=== PATIENT | female | born 1935 | race African-American/Black ===

== ENCOUNTER → 2019-02-06 | Day surgery (SDC) | payer OTHER ==
[2019-02-02 12:11] LABS: BASOPHILS % 0.3 % (0.0-1.0); EOSINOPHILS # (AUTO) 0.1 (0.0-0.4); EOSINOPHILS % 0.7 % (0.0-6.0); HEMATOCRIT 36.5 % (34.2-44.1); HEMOGLOBIN 11.9 g/dL (12.0-16.0); LYMPHOCYTES # (AUTO) 2.7 (1.0-3.2); MEAN CORPUSCULAR HEMOGLOBIN 28.1 pg (28-32); MEAN CORPUSCULAR HGB CONC 32.6 g/dL (31-35); MEAN CORPUSCULAR VOLUME 86.3 fL (81-99); MONOCYTES # (AUTO) 0.8 (0.2-0.8); MONOCYTES % 7.7 % (4.4-11.3); NEUTROPHILS # (AUTO) 7.1 (2.1-6.9); PLATELET COUNT 234 x10e3/uL (140-360); RED BLOOD COUNT 4.23 x10e6/uL (3.6-5.1); RED CELL DISTRIBUTION WIDTH 13.4 % (11.7-14.4)
[2019-02-02 12:30] LABS: ALBUMIN 3.7 g/dL (3.5-5.0); ANION GAP 12.2 mmol/L (8-16); CALCIUM 9.9 mg/dL (8.4-10.2); CREATININE, SERUM 1.23 mg/dL (0.57-1.11); POTASSIUM 4.2 mmol/L (3.5-5.1)
--- NOTE | 2019-02-02 15:32 | NUR ---
Dr. Marlow notified of Abnormal labs: creatinine 1.23 and eGFR 50. No new orders at this time.
[~2019-02-06] VITALS: Ht 167.6 cm; Wt 72.6 kg
[2019-02-06] VITALS (14 sets, daily range): BP systolic 122–170; BP diastolic 64–88
[~2019-02-06] MED LIST: ALPRAZOLAM 0.5 MG TAB ONE; ASPIRIN 325 MG TAB ONE; BENAZEPRIL HCL10 MG PO; BENAZEPRIL-HCT1 EAC3 PO; CETIRIZINE HCL5 MG PO; CITALOPRAM HBR20 MG PO; CLOPIDOGREL75 MG PO; CYMBALTA30 MG PO; DIPHENHYDRAMINE HCL 25 MG CAP ONE; ETODOLAC400 MG PO; FENTANYL CITRATE/PF 100MCG/2 ML INJ ONE; HEPARIN SOD/SOD CHLORIDE 2,000 ML ONE; IOPAMIDOL 300MG/ML 100 ML INFUS..BTL IV ONE; LIDOCAINE HCL 2% LOCAL 20 ML VIAL ONE; METOPROLOL SUCC50 MG PO; MIDAZOLAM HCL 2 MG/2 ML VIAL ONE; MORPHINE SULFATE INJ 4 MG/ML INJ 1ML ONE; NORCO 5-325 TA1 EACH PO; NORCO 7.5-3251 EACH PO; OMEPRAZOLE40 MG PO; PAXIL20 MG PO; PRASUGREL 10 MG TAB ONE; PROTAMINE SULFATE 10 MG/ML 5 ML VIAL ONE; SODIUM CHLORIDE 0.9% 1000ML 1,000 ML ONE; SODIUM CHLORIDE 0.9% 50ML 50 ML ONE; TRAZODONE HCL50 MG PO; ULTRACET TABLE1 EACH PO; VERAPAMIL HCL 2.5 MG/ML 2 ML VIAL ONE; Z METOPROLOL HCT PO; Z.0.AMBIEN CR12.5 MG PO; Z.0.LIPITOR20 MG PO; Z.0.NEXIUM20 MG PO
--- OUTSIDE RECORDS SUMMARY | 2019-02-06 07:36 | XMS REPORT ---
Author Author [facility] Address Unknown Phone Unavailable Care Team Providers Care Credit Review Manager Name Role Phone Unavailable Unavailable Problems This patient has no known problems. Allergies, Adverse Reactions, Alerts This patient has no known allergies or adverse reactions. Medications This patient has no known medications. Encounters Start Date/Time End Date/Time Encounter Type Admission Type Attending Clinicians Care Facility Care Department Encounter ID 2018-12-26 12:39:00 2018-12-26 12:39:00 Emergency E [facility] [id number]
--- OUTSIDE RECORDS SUMMARY | 2019-02-06 07:37 | XMS REPORT ---
Author Organization Unknown Address [address] [place] [address] Phone [phone] Care Team Providers Care Family Services Coordinator Name Role Phone ELIZABETH MANUEL MD 111 [phone] Allergies Code Code System Name Reaction Severity Status Onset Penicillins Active 09/15/2015 Medications Name Status Start Date Stop Date acetaminophen 300 mg-codeine 30 mg tablet Active Not available Alphagan P 0.1 % eye drops Completed 04/27/2017 atorvastatin 20 mg tablet Active Not available azithromycin 250 mg tablet Completed 05/27/2016 benazepril 20 mg tablet Completed 03/16/2016 benazepril 20 mg-hydrochlorothiazide 25 mg tablet Active Not available bupropion HCl XL 150 mg 24 hr tablet, extended release Completed 08/01/2017 08/01/2017 celecoxib 200 mg capsule Active 08/01/2017 Not available ciprofloxacin 500 mg tablet Completed 03/16/2016 citalopram 20 mg tablet 1 tab QD Completed 05/27/2016 dorzolamide 22.3 mg-timolol 6.8 mg/mL eye drops Active Not available duloxetine 30 mg capsule,delayed release Active Not available gabapentin 300 mg capsule Active Not available hydrocodone 7.5 mg-acetaminophen 325 mg tablet Completed 03/16/2016 latanoprost 0.005 % eye drops Active Not available meloxicam 15 mg tablet Completed 05/27/2016 metoprolol succinate ER 50 mg tablet,extended release 24 hr Active Not available metoprolol tartrate 100 mg-hydrochlorothiazide 25 mg tablet Completed 03/16/2016 omeprazole 20 mg capsule,delayed release 1 tab QD Active Not available oxybutynin chloride ER 10 mg tablet,extended release 24 hr 1 tab Completed 05/27/2016 paroxetine 10 mg tablet Take 1 tablet every day by oral route for 7 days. 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/06/2015 History Hypertensive Heart Disease Unknown 03/06/2015 History Diaphragmatic Hernia Active 03/06/2015 History Diverticula of Intestine Active 03/06/2015 History Neck Pain Unknown 03/06/2015 History 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 History Low Back Pain Active 03/06/2015 History Lumbosacral Radiculopathy Active 03/06/2015 History Finding of Esophagus Unknown 03/06/2015 History Primary Open Angle Glaucoma Active 06/19/2015 History Spinal Stenosis in Cervical Region Active 09/15/2015 History Exercise-induced Angina Active 07/05/2016 Insomnia Active 07/08/2016 Gastroesophageal Reflux Disease Active 07/08/2016 Hypertensive Renal Disease Active 04/27/2017 Chronic Kidney Disease Stage 3 Active 04/27/2017 Mild Recurrent Major Depression Active 08/01/2017 Procedures Date Name Performed by 02/18/2016 Bone Density Study Information not available 05/27/2016 XR, Shoulder [facility] [address] [place], [place] [id number] (Work Place) 05/27/2016 MAMMO, Screening, Digital, Bilateral [facility] [address] [place], [place] [id number] (Work Place) Notes: 09/15/2015: S/P Hysterectomy; Surgery Date: 1959 S/P Cholecystectomy; Surgery Date: 2001 S/P Lumbar Laminectomy L3-4 L 4-5 L5-S1; Surgery Date: 2008 Lab Results Date Name Specimen Result Interpretation Description Value Range Status Address 08/01/2017 HbA1C (Hemoglobin a1C), Blood Normal Hemoglobin a1C 5.5 % of total HGB <5.7 % of total HGB Final [facility]: [address] [place] [address] [place] EAG (mg/dL) 111 (calc) Final [facility]: [address] [place] [address] [place] EAG (mmol/L) 6.2 (calc) Final [facility]: [address] Larry Teri [place] 08/01/2017 Urinalysis, Dipstick Color Color yellow [facility]: [address], [place] Color Appearance cloudy [facility] [place]: [address], [place] Color Glucose negative [facility] [place]: [address], [place] Color Bilirubin negative [facility] [place]: [address], [place] Color Ketones negative [facility] [place]: [address], [place] Color Specific Mary Alice 1.015 [facility]: [address], [place] Color Blood negative [facility] [place]: [address], [place] Color PH 6.0 [facility] [place]: [address], [place] Color Protein negative [facility]: [address] [facility] [address] [place] Color Urobilinogen 0.2 [facility]: [address], [place] Color Nitrites negative [facility] [place]: [address], [place] Color Leukocytes small [facility]: [address] [facility] [address], [place] 04/27/2017 CBC W/ Auto Diff Normal White Blood Cell Count 6.5 thousand/uL 3.8-10.8 thousand/uL Final [facility]: [address] [place] [address] Normal Red Blood Cell Count 4.24 million/uL 3.80-5.10 million/uL Final [facility] [address] [facility] Hemoglobin 11.5 g/dL 11.7-15.5 g/dL Final [facility]: [address] [facility] Normal Hematocrit 35.5 % 35.0-45.0 % Final [facility]: [address] [facility] Normal Mcv 83.7 fL 80.0-100.[address] [facility] [address] [facility] Normal Mch 27.1 pg 27.0-33.[address] [facility]: [address], [place] Normal Mchc 32.4 g/dL 32.0-36.0 g/dL Final [facility] [address] [facility] Normal Rdw 14.0 % 11.0-15.0 % Final [facility]: [address], [place] Normal Platelet Count 175 thousand/uL 140-400 thousand/uL Final [facility]: [address] Normal Mpv 11.9 fL 7.5-12.[address] [facility]: [address] [place] Normal Absolute Neutrophils 3842 cells/uL 8760-2853 cells/uL Final [facility]: [address] [place] Normal Absolute Lymphocytes 2041 cells/uL 850-3900 cells/uL Final [facility]: [address] [place] Normal Absolute Monocytes 468 cells/uL 200-950 cells/uL Final [facility]: [address] [place] Normal Absolute Eosinophils 111 cells/uL 15-500 cells/uL Final [facility]: [address] [place] Normal Absolute Basophils 39 cells/uL 0-200 cells/uL Final [facility]: [address] [place] Normal Neutrophils 59.1 % Final [facility]: [address] [place] Normal Lymphocytes 31.4 % Final [facility]: [address] [place] Normal Monocytes 7.2 % Final [facility]: [address] [place] Normal Eosinophils 1.7 % Final [facility]: [address] [place] Normal Basophils 0.6 % Final [facility]: [address] [place] 04/27/2017 CMP, Serum or Plasma High Glucose 130 mg/dL 65-99 mg/dL Final [facility]: [address] [place] Normal Urea Nitrogen (BUN) 16 mg/dL 7-25 mg/dL Final [facility]: [address] [place] High Creatinine 1.10 mg/dL 0.60-0.88 mg/dL Final [facility]: [address] [place] Low eGFR Non-afr. Hong Konger 46 mL/min/1.73m2 > or=60 mL/min/1.73m2 Final [facility]: [address] [place] Low eGFR 53 mL/min/1.73m2 > or=60 mL/min/1.73m2 [address] [facility] [address] [facility] Normal BUN/creatinine Ratio 15 (calc) 6-22 (calc) Final [facility]: [address] Normal Sodium 143 mmol/L 135-146 mmol/L Final [facility]: [address] Normal Potassium 4.1 mmol/L 3.5-5.3 mmol/L Final [facility]: [address] Normal Chloride 108 mmol/L 98-110 mmol/L Final [facility]: [address] Normal Carbon Dioxide 26 mmol/L 20-31 mmol/L Final [facility]: [address] Normal Calcium 8.8 mg/dL 8.6-10.4 mg/dL Final [facility]: [address] Normal Protein, Total 6.4 g/dL 6.1-8.1 g/dL Final [facility]: [address] Normal Albumin 3.8 g/dL 3.6-5.1 g/dL Final [facility]: [address] Normal Globulin 2.6 g/dL (calc) 1.9-3.7 g/dL (calc) Final [facility]: [address] Normal Albumin/globulin Ratio 1.5 (calc) 1.0-2.5 (calc) Final [facility]: [address] Normal Bilirubin, Total 0.4 mg/dL 0.2-1.2 mg/dL Final [facility]: [address] Normal Alkaline Phosphatase 50 U/L 33-130 U/L Final [facility]: [address] Normal Ast 14 U/L 10-35 U/L Final [facility]: [address] Normal Alt 10 U/L 6-29 U/L Final [facility]: [address] 04/27/2017 Vitamin D, 25-Hydroxy, Total, Serum Low Vitamin D,25-Oh,total,ia 25 NG/mL 30-100 NG/mL Final [facility]: [address] 04/27/2017 Lipid Panel, Serum Normal Cholesterol, Total 132 mg/dL <200 mg/dL Final [facility]: [address] Low HDL Cholesterol 40 mg/dL >50 mg/dL Final [facility]: [address] High Triglycerides 218 mg/dL <150 mg/dL Final [facility]: [address] Normal LDL-cholesterol 63 mg/dL (calc) Final [facility]: [address] Normal Chol/hdlc Ratio 3.3 (calc) <5.0 (calc) Final [facility]: [address] Normal Non HDL Cholesterol 92 mg/dL (calc) <130 mg/dL (calc) Final [facility]: [address] 04/27/2017 PTH (Parathyroid Hormone), Intact, Serum or Plasma High Parathyroid Hormone, Intact 67 pg/mL 14-64 pg/mL Final [facility]: [address] 10/13/2016 CBC W/ Auto Diff Normal White Blood Cell Count 7.8 thousand/uL 3.8-10.8 thousand/uL Final [facility]: [address] Normal Red Blood Cell Count 4.33 million/uL 3.80-5.10 million/uL Final [facility]: [address] Normal Hemoglobin 11.9 g/dL 11.7-15.5 g/dL Final [facility]: [address] Normal Hematocrit 36.7 % 35.0-45.0 % Final [facility]: [address] Normal Mcv 84.7 fL 80.0-100.[address] [facility]: [address] Normal Mch 27.5 pg 27.0-33.[address] [facility]: [address] Normal Mchc 32.4 g/dL 32.0-36.0 g/dL Final [facility]: [address] High Rdw 15.4 % 11.0-15.0 % Final [facility]: [address] [place] Normal Platelet Count 178 thousand/uL 140-400 thousand/uL Final [facility]: [address] [place] Normal Mpv 9.4 fL 7.5-12.[address] [facility]: [address] [place] Normal Absolute Neutrophils 5312 cells/uL 5486-2204 cells/uL Final [facility]: [address] [place] Normal Absolute Lymphocytes 1786 cells/uL 850-3900 cells/uL Final [facility]: [address] [place] Normal Absolute Monocytes 437 cells/uL 200-950 cells/uL Final [facility]: [address] [place] Normal Absolute Eosinophils 187 cells/uL 15-500 cells/uL Final [facility]: [address] [place] Normal Absolute Basophils 78 cells/uL 0-200 cells/uL Final [facility]: [address] [place] Normal Neutrophils 68.1 % Final [facility]: [address] [place] Normal Lymphocytes 22.9 % Final [facility]: [address] [place] Normal Monocytes 5.6 % Final [facility]: [address] [place] Normal Eosinophils 2.4 % Final [facility]: [address] [place] Normal Basophils 1.0 % Final [facility]: [address] [place] 10/13/2016 Lipid Panel, Serum Low Cholesterol, Total 120 mg/dL 125- 200 mg/dL Final [facility]: [address] [place] Low HDL Cholesterol 41 mg/dL > or=46 mg/dL Final [facility]: [address] [place] High Triglycerides 167 mg/dL <150 mg/dL Final [facility]: [address] [place] Normal LDL-cholesterol 46 mg/dL (calc) <130 mg/dL (calc) Final [facility]: [address] [place] Normal Chol/hdlc Ratio 2.9 (calc) < or=5.0 (calc) Final [facility]: [address] [facility] Non HDL Cholesterol 79 mg/dL (calc) Final [facility]: [address] [facility] 10/13/2016 CMP, Serum or Plasma High Glucose 172 mg/dL 65-99 mg/dL Final [facility]: [address] Normal Urea Nitrogen (BUN) 15 mg/dL 7-25 mg/dL Final [facility]: [address] High Creatinine 1.12 mg/dL 0.60-0.88 mg/dL Final [facility]: [address] Low eGFR Non-afr. [place] 45 mL/min/1.73m2 > or=60 mL/min/1.73m2 Final [facility]: [address] Low eGFR 53 mL/min/1.73m2 > or=60 mL/min/1.73m2 Final [facility]: [address] Normal BUN/creatinine Ratio 13 (calc) 6-22 (calc) Final [facility]: [address] Normal Sodium 139 mmol/L 135-146 mmol/L Final [facility]: [address] Normal Potassium 4.5 mmol/L 3.5-5.3 mmol/L Final [facility]: [address] Normal Chloride 106 mmol/L 98-110 mmol/L Final [facility]: [address] Normal Carbon Dioxide 23 mmol/L 20-31 mmol/L Final [facility]: [address] Normal Calcium 9.1 mg/dL 8.6-10.4 mg/dL Final [facility]: [address] Normal Protein, Total 6.6 g/dL 6.1-8.1 g/dL Final [facility]: [address] Normal Albumin 3.9 g/dL 3.6-5.1 g/dL Final [facility]: [address] Normal Globulin 2.7 g/dL (calc) 1.9-3.7 g/dL (calc) Final [facility]: [address] Normal Albumin/globulin Ratio 1.4 (calc) 1.0-2.5 (calc) Final [facility]: [address] Normal Bilirubin, Total 0.3 mg/dL 0.2-1.2 mg/dL Final [facility]: [address] Normal Alkaline Phosphatase 53 U/L 33-130 U/L Final [facility]: [address] [address], [place] Normal Ast 19 U/L 10-35 U/L Final [facility]: [address] [address], [place] Normal Alt 12 U/L 6-29 U/L Final [facility]: [address] 06/10/2016 Lipid Panel, Serum Normal Cholesterol, Total 136 mg/dL 125- 200 mg/dL Final [facility]: [address], [place] Normal HDL Cholesterol 47 mg/dL > or=46 mg/dL Final [facility]: [address], [place] High Triglycerides 152 mg/dL <150 mg/dL Final [facility]: [address], [place] Normal LDL-cholesterol 59 mg/dL (calc) <130 mg/dL (calc) Final [facility]: [address], [place] Normal Chol/hdlc Ratio 2.9 (calc) < or=5.0 (calc) Final [facility]: [address], [place] Normal Non HDL Cholesterol 89 mg/dL (calc) Final [facility]: [address], [place] 06/10/2016 CMP, Serum or Plasma High Glucose 113 mg/dL 65-99 mg/dL Final [facility]: [address], [place] Normal Urea Nitrogen (BUN) 17 mg/dL 7-25 mg/dL Final [facility]: [address], [place] High Creatinine 1.09 mg/dL 0.60-0.88 mg/dL Final [facility]: [address], [place] Low eGFR Non-afr. [place] 47 mL/min/1.73m2 > or=60 mL/min/1.73m2 Final [facility]: [address] [facility] [place] Low eGFR 54 mL/min/1.73m2 > or=60 mL/min/1.73m2 Final [facility]: [address] [facility] [place] Normal BUN/creatinine Ratio 16 (calc) 6-22 (calc) Final [facility]: [address] [facility], [place] Normal Sodium 140 mmol/L 135-146 mmol/L Final [facility]: [address] [place] [address], [place] Normal Potassium 3.8 mmol/L 3.5-5.3 mmol/L Final [facility]: [address] [place] [address], [place] Normal Chloride 104 mmol/L 98-110 mmol/L Final [facility]: [address] [place] [address], [place] Normal Carbon Dioxide 27 mmol/L 20-31 mmol/L Final [facility]: [address] [place] [address], [place] Normal Calcium 9.5 mg/dL 8.6-10.4 mg/dL Final [facility]: [address] [place] [address], [place] Normal Protein, Total 7.1 g/dL 6.1-8.1 g/dL Final [facility]: [address] [place] [address], [place] Normal Albumin 3.9 g/dL 3.6-5.1 g/dL Final [facility]: [address] [place] [address], [place] Normal Globulin 3.2 g/dL (calc) 1.9-3.7 g/dL (calc) Final [facility]: [address] [place] [address], [place] Normal Albumin/globulin Ratio 1.2 (calc) 1.0-2.5 (calc) Final [facility]: [address] [place] [address], [place] Normal Bilirubin, Total 0.5 mg/dL 0.2-1.2 mg/dL Final [facility]: [address] [facility], [place] Normal Alkaline Phosphatase 55 U/L 33-130 U/L Final [facility]: [address] [facility], [place] Normal Ast 19 U/L 10-35 U/L Final [facility]: [address] [place] [address], [place] Normal Alt 12 U/L 6-29 U/L Final [facility]: [address] [facility], [place] 06/10/2016 CBC W/ Auto Diff Normal White Blood Cell Count 6.4 thousand/uL 3.8-10.8 thousand/uL Final [facility]: [address] [facility], [place] Normal Red Blood Cell Count 4.58 million/uL 3.80-5.10 million/uL Final [facility]: [address] [facility], [place] Normal Hemoglobin 12.4 g/dL 11.7-15.5 g/dL Final [facility]: [address] [facility], [place] Normal Hematocrit 38.8 % 35.0-45.0 % Final [facility]: [address] [facility], [place] Normal Mcv 84.8 fL 80.0-100.0 fL Final [facility]: [address] [facility], [place] Normal Mch 27.1 pg 27.0-33.0 pg Final [facility]: [address] [place] [address], [place] Normal Mchc 32.0 g/dL 32.0-36.0 g/dL Final [facility]: [address] [facility], [place] High Rdw 15.2 % 11.0-15.0 % Final [facility]: [address] [facility], [place] Normal Platelet Count 184 thousand/uL 140-400 thousand/uL Final [facility]: [address] [facility], [place] Normal Mpv 10.0 fL 7.5-12.5 fL Final [facility]: [address] [place] [address], [place] Normal Absolute Neutrophils 4141 cells/uL 7715-9883 cells/uL Final [facility]: [address] [facility], [place] Normal Absolute Lymphocytes 1779 cells/uL 850-3900 cells/uL Final [facility]: [address] [facility], [place] Normal Absolute Monocytes 358 cells/uL 200-950 cells/uL Final [facility]: [address] [facility], [place] Normal Absolute Eosinophils 90 cells/uL 15-500 cells/uL Final [facility] [employer] [facility]: [address] [facility], [place] Normal Absolute Basophils 32 cells/uL 0-200 cells/uL Final [facility] [employer] [facility]: [address] [facility], [place] Normal Neutrophils 64.7 % Final [facility]: [address], [place] Normal Lymphocytes 27.8 % Final [facility]: [address], [place] Normal Monocytes 5.6 % Final [facility]: [address], [place] Normal Eosinophils 1.4 % Final [facility]: [address], [place] Normal Basophils 0.5 % Final [facility]: [address], [place] 06/10/2016 T4, Total, Serum Normal T4 (Thyroxine), Total 7.0 mcg/dL 4.5-12.0 mcg/dL Final [facility]: [address], [place] 06/10/2016 TSH, Serum or Plasma Normal Tsh 1.56 mIU/L 0.40-4.50 mIU/L Final [facility]: [address], [place] Past Encounters 08/15/2017 Mild Recurrent Major Depression; Gastroesophageal Reflux Disease DAYANA Franklin: [address] [place] [phone], Ph. 08/01/2017 Hypertensive Renal Disease; Chronic Kidney Disease Stage 3; Blood Glucose Abnormal; Increased Frequency of Urination; Mild Recurrent Major Depression; Pneumococcal Vaccination; Viral Immunization DAYANA Franklin: [address] [phone], Ph. 04/27/2017 Low Back Pain; Pure Hypercholesterolemia; Hypertensive Heart Disease; Neck Pain; Lumbosacral Radiculopathy; Gastroesophageal Reflux Disease; Insomnia; Immunization; Chronic Kidney Disease Stage 3; Tinnitus STELLA Kaur: [address] [place] [phone], Ph. 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 08/09/2016 Low Back Pain; Pure Hypercholesterolemia; Hypertensive Heart Disease; Recurrent Major Depressive Episodes, Moderate; Gastroesophageal Reflux Disease; Insomnia; Lumbosacral Radicul[place]: [address] [facility], [address], [place] [phone], Ph. 07/08/2016 Low Back Pain; Recurrent Major Depressive Episodes, Moderate; Hypertensive Heart Disease; Pure Hypercholesterolemia; Gastroesophageal Reflux Disease; Insomnia; Primary Open Angle Glaucoma Marce Magana PA: [address] [facility], [facility] [address], [place] [address], Ph. 06/10/2016 Adult Health Examination; Body Mass Index 25-29 - Overweight; Hypertensive Heart Disease; Pure Hypercholesterolemia; Screening for Malignant Neoplasm of Colon; Postmenopausal State; Pneumococcal Vaccination; EKG: T Wave Abnormal; Recurrent Major Depressive Episodes, Moderate; Shoulder Joint Pain Marce Magana PA: [id number] [facility], [facility] [address] [address], Ph. 05/27/2016 Recurrent Major Depressive Episodes, Moderate; Shoulder Joint Pain; Screening for Malignant Neoplasm of Breast Marce Magana PA: [address]69 [facility], [facility] [address] [address], Ph. 03/16/2016 Acute Bronchitis; Low Back Pain; Lumbosacral Radiculopathy STELLA Kaur: [id number] [facility], [facility] [address], [place] [address], Ph. Social History Smoking Status Never Smoker Vaccine List Vaccine Type influenza, high dose seasonal 04/27/20170.5 mL influenza, injectable, quadrivalent 02/02/2016 influenza, seasonal, injectable 03/06/2015 pneumococcal conjugate PCV 13 06/10/20160.5 mL pneumococcal polysaccharide PPV23 08/01/20170.5 mL zoster 08/01/20170.65 mL Plan of Care Patient Instructions Increase PO fluids. Complete all antibiotics as prescribed. Call or RTC for worsening of symptoms or no improvement in 2-3 days. Reminders Provider Appointments None recorded. Lab None recorded. Referral None recorded. Procedures None recorded. Surgeries None recorded. Imaging None recorded. Vitals 08/15/2017 10:15AM Est Patient Height Weight BMI Blood Pressure 5 ft 6.5 in 163.8 lbs 26 kg/m2 133/76 mm[Hg] 08/01/2017 10:15AM Est Patient Height Weight BMI Blood Pressure 5 ft 6.5 in 166.2 lbs 26.4 kg/m2 (1) 140/76 mm[Hg] (2) 139/77 mm[Hg] 04/27/2017 10:00AM Est Patient Height Weight BMI Blood Pressure 5 ft 6.5 in 168.2 lbs 26.7 kg/m2 140/85 mm[Hg] 10/13/2016 09:15AM Est Patient Height Weight BMI Blood Pressure 5 ft 6.5 in 160.6 lbs 25.5 kg/m2 135/78 mm[Hg] 08/09/2016 10:00AM Est Patient Height Weight BMI Blood Pressure 5 ft 6.5 in 161 lbs 25.6 kg/m2 117/81 mm[Hg] 07/08/2016 10:00AM Est Patient Height Weight BMI Blood Pressure 5 ft 6.5 in 167 lbs 26.6 kg/m2 106/65 mm[Hg] 06/10/2016 09:30AM CONTACT LENS CURVE GRINDER/EST CPX Height Weight BMI Blood Pressure 5 ft 6.5 in 160 lbs 25.4 kg/m2 116/77 mm[Hg] 05/27/2016 03:30PM Work In Same Day Height Weight BMI Blood Pressure 5 ft 6.5 in 165 lbs 26.2 kg/m2 137/76 mm[Hg] 03/16/2016 11:00AM Work In Same Day Height Weight BMI Blood Pressure 5 ft 6.5 in 158.4 lbs 25.2 kg/m2 124/67 mm[Hg] 09/15/2015 Height Weight BMI Blood Pressure 5 ft 6.5 in 162.8 lbs 25.88 kg/m2 118/64 mm[Hg] 07/30/2015 Height Weight BMI Blood Pressure 5 ft 6.5 in 162.2 lbs 25.78 kg/m2 121/65 mm[Hg] 07/03/2015 Height Weight BMI Blood Pressure 5 ft 6.5 in 161 lbs 25.59 kg/m2 117/66 mm[Hg] 03/13/2015 Height Weight BMI Blood Pressure 5 ft 6.5 in 154.2 lbs 24.51 kg/m2 124/82 mm[Hg] 03/06/2015 Height Weight Blood Pressure 5 ft 6.5 in 154.2 lbs 112/64 mm[Hg] 03/06/2015 BMI 24.51 kg/m2 12/04/2014 Height Weight BMI Blood Pressure 5 ft 6.5 in 155.8 lbs 24.77 kg/m2 115/71 mm[Hg] 07/25/2014 Height Weight BMI Blood Pressure 5 ft 6.5 in 151 lbs 24.00 kg/m2 130/70 mm[Hg] 04/16/2014 Height Weight BMI Blood Pressure 5 ft 6.5 in 152.2 lbs 24.20 kg/m2 110/60 mm[Hg] 12/25/2013 Height Weight 5 ft 6.5 in 154 lbs 12/10/2013 Height Weight 5 ft 6.5 in 153 lbs 11/08/2013 Height Weight 5 ft 6.5 in 156 lbs 09/04/2013 Height Weight 5 ft 6.5 in 157 lbs 07/02/2013 Height Weight 5 ft 6.5 in 158 lbs 04/26/2013 Height Weight 5 ft 6.5 in 159.8 lbs 02/20/2013 Height Weight 5 ft 6.54 in 159.4 lbs 12/26/2012 Height Weight 5 ft 6.5 in 160.8 lbs 10/30/2012 Height Weight 5 ft 6.5 in 160 lbs 08/28/2012 Height Weight 5 ft 6.5 in 162.4 lbs 08/08/2012 Height Weight 5 ft 6.5 in 160.6 lbs 07/14/2012 Height Weight 5 ft 6.5 in 163.4 lbs 07/03/2012 Height Weight 5 ft 6.5 in 161.8 lbs 05/17/2012 Height Weight 5 ft 6.5 in 162.8 lbs 05/04/2012 Height Weight 5 ft 6.5 in 162.8 lbs 02/22/2012 Height Weight 5 ft 6.5 in 163.2 lbs 11/24/2011 Height Weight 5 ft 6.5 in 163.8 lbs 10/26/2011 Height Weight 5 ft 6.5 in 164.2 lbs 08/02/2011 Height Weight 5 ft 6.5 in 160.6 lbs 07/26/2011 Height Weight 5 ft 6.5 in 161.2 lbs 04/14/2011 Height Weight 5 ft 6.5 in 165 lbs 01/13/2011 Height Weight 5 ft 6.5 in 164.8 lbs 07/24/2010 Height Weight 5 ft 6.5 in 162 lbs 07/01/2010 Height Weight 5 ft 6.5 in 160 lbs
--- NOTE | 2019-02-06 11:43 | NUR ---
1143a bedside report received from Hayes LUCIANO.Identiferx2. Alert oriented and appropriate, PERRLA, respirations even and unlabored to room air. Pulses x4 extremities equal and strong. Pedal pulses PT/DP x4. Cap fill brisk < 3 sec. Skin warm and dry integrity appears D/I. IV 20g to left hand aat 100cchr presents healthy w/o s/s of infiltration or complaint. Abdomen soft and supple. pt offered toileting, denies need to urinate or defecate. No personal affects with patient. Family will return later. Pt verbalizes understanding of POC. Currently w/o complaint of pain or need. ds/rn
--- NOTE | 2019-02-06 12:50 | NUR ---
1250 RADIAL Compression removal: Initial Cuff volume 12 cc 1250 -2 cc Removed No hematoma/bleeding noted with normal neurovascular function. 1315 -5cc Removed No hematoma/ bleeding noted with normal neurovascular function. 1330 -5cc Removed No hematoma/bleeding noted with normal neurovascular function. Air removal completed. Stasis achieved sterile 2x2,Tegaderm, Coban dressing No hematoma, bleeding noted with normal neurovascular function. Wrist splint in place. Pt instructed on POC. Ds/Rn
--- NOTE | 2019-02-06 13:45 | NUR ---
1345 8/10 low back pain medicated 4mg morphine ivp Assist with bed stevenson void 400 plus clear urine. P t called family to return at 330pm ds/rn
--- NOTE | 2019-02-06 14:15 | NUR ---
1415 resting quietly no c/o of pain Tolerated po intake, ds/rn
--- NOTE | 2019-02-06 16:00 | NUR ---
1600Pt meets DC criteria. Site assessed for s/s of complication and presence of hematoma. Skinwarm, dry, no discolor, and pulses present. IV removed from XXXX. Distal tip appears intact. VS WNL. Pt denies pain, sob, or need at this time. Family at Review of discharge paperwork and follow up instructions. verbalized understanding. Pt to wheelchair and transported to front of hospital. Transferred to private vehicle under own strength w/o incident with DC paperwork in hand. -ds/rn
--- NOTE | 2019-02-06 22:16 | Operative Report ---
DATE OF PROCEDURE: 02/06/2019 SURGEON: Lexx Marlow MD INDICATIONS: Peripheral arterial disease with claudication. PROCEDURES PERFORMED: 1. Abdominal aorta catheter placement, abdominal aortogram. 2. Bilateral lower extremity angiogram. 3. Selective catheter placement of right femoral artery, left superficial femoral artery. 4. Additional 3rd order catheter placement of right femoral artery, left anterior tibial artery. 5. Ultrasound guided access into the left anterior tibial artery. 6. Atherectomy with angioplasty and stent placement to the left femoral artery. 7. Secondary thrombectomy of the left femoral artery. 8. Deployment of right groin Perclose and left anterior tibial artery and left pedal TR band application. COMPLICATIONS: None. ESTIMATED BLOOD LOSS: Minimal. DESCRIPTION OF PROCEDURE: Access obtained in the right femoral artery. Abdominal aortogram demonstrated mild disease in the abdominal aorta and iliacs bilaterally. Catheter then advanced in the right femoral artery, left superficial femoral artery, heavily calcified, complete occlusion of the left femoral artery. Distal vessels were not well seen. The catheter then advanced from right femoral artery to left anterior tibial artery, Three-vessel runoff. Right leg angiogram demonstrates moderate disease, heavy calcification, 50% diffuse right femoral artery stenosis. Decision was made to entry on the left femoral artery. The patient received 9000 units of intravenous heparin for anticoagulation attempts to cross the chronic total occlusion. Left femoral artery in antegrade fashion failed. Access was then obtained in the right anterior tibial artery. Using ultrasound guidance, a 6-Upper Sorbian sheath was placed. Retrograde wire passage was successful. Orbital atherectomy with CSI 1.5 mm crown was performed. Large amounts of visible thrombus, for which manual aspiration secondary thrombectomy of the femoral artery was needed. Balloon angioplasty with a 6-mm balloon resulted in perforation of the left femoral artery. A single Viabahn covered stent was 6 x 250 mm was placed in the popliteal and femoral arteries, postdilated with a 6-mm balloon, excellent end result, three-vessel runoff, no complications. Right groin repaired using Perclose closure device. The patient was discharged home same day. Lexx Marlow MD KSB/MODL /[id number]
== END | disposition home or self-care (01) ==
LOC: CATH LAB 07:33
PROVIDERS: ATTEND Internal Medicine Interventional Cardiology
DX: I70.213 Atherosclerosis of native arteries of extremities with intermittent claudication, bilateral legs (principal); I20.8 Other forms of angina pectoris; Z01.812 Encounter for preprocedural laboratory examination; Z79.02 Long term (current) use of antithrombotics/antiplatelets
CPT/HCPCS: 36415; 37186; 37227; 75625; 75716; 76937; 80053; 85025; C1724; C1725 ×4; C1769 ×3; C1874; C1887 ×3; J2001; J2250; J2270; J2720; J3010; J7030; Q9967; 36247; C1760

== ENCOUNTER 2019-02-15 14:54 | Inpatient (IN) | payer OTHER ==
[~2019-02-15] VITALS: Ht 167.6 cm; Wt 80.3 kg
[~2019-02-15 14:54] MED LIST changes: -ALPRAZOLAM 0.5 MG TAB ONE; -ASPIRIN 325 MG TAB ONE; -DIPHENHYDRAMINE HCL 25 MG CAP ONE; -FENTANYL CITRATE/PF 100MCG/2 ML INJ ONE; -HEPARIN SOD/SOD CHLORIDE 2,000 ML ONE; -IOPAMIDOL 300MG/ML 100 ML INFUS..BTL IV ONE; -LIDOCAINE HCL 2% LOCAL 20 ML VIAL ONE; -MIDAZOLAM HCL 2 MG/2 ML VIAL ONE; -MORPHINE SULFATE INJ 4 MG/ML INJ 1ML ONE; -PRASUGREL 10 MG TAB ONE; -PROTAMINE SULFATE 10 MG/ML 5 ML VIAL ONE; -SODIUM CHLORIDE 0.9% 1000ML 1,000 ML ONE; -SODIUM CHLORIDE 0.9% 50ML 50 ML ONE; -VERAPAMIL HCL 2.5 MG/ML 2 ML VIAL ONE
[2019-02-15] MEDS ORDERED: ASPIRIN 81 MG CHEW TAB PO ONE (15:15)
[2019-02-15] MEDS ORDERED: SODIUM CHLORIDE 0.9% 1000ML 1,000 ML IV STA (15:28)
[2019-02-15] MEDS ORDERED: ONDANSETRON HCL INJ 2MG/ML 2ML 2 MG/ML VIAL IV STA (15:28)
[2019-02-15] MEDS ORDERED: SODIUM CHLORIDE 0.9% 1000ML 500 ML IV STA (15:28)
[2019-02-15] MEDS ORDERED: PANTOPRAZOLE 40 MG 10ML VIAL IV STA (15:28)
[2019-02-15] MEDS ORDERED: MORPHINE SULFATE INJ 4 MG/ML INJ 1ML IV STA (15:28)
[2019-02-15] MEDS ORDERED: NITROGLYCERIN 2% OINT 1 GM PKT TOP ONE (15:30)
[2019-02-15] MEDS ORDERED: HEPARIN 25,000 UNIT 1,200 UNIT in DEXTROSE 5% 250ML 250 ML IV SCH (15:45)
[2019-02-15] MEDS ORDERED: MORPHINE SULFATE 2 MG/ML SYR 1ML IV PRN (15:45)
[2019-02-15] MEDS ORDERED: HEPARIN SOD (PORCINE) 5,000 UNIT/ML VIAL IV ONE (15:45)
[2019-02-15 15:52] LABS: BASOPHILS % 0.3 % (0.0-1.0); EOSINOPHILS % 0.1 % (0.0-6.0); HEMATOCRIT 29.5 % (34.2-44.1); HEMOGLOBIN 9.7 g/dL (12.0-16.0); LYMPHOCYTES % 12.6 % (18.0-39.1); MEAN CORPUSCULAR HEMOGLOBIN 27.9 pg (28-32); MEAN CORPUSCULAR HGB CONC 32.9 g/dL (31-35); MEAN CORPUSCULAR VOLUME 84.8 fL (81-99); MONOCYTES # (AUTO) 1.5 (0.2-0.8); MONOCYTES % 9.2 % (4.4-11.3); NEUTROPHILS # (AUTO) 12.3 (2.1-6.9); PLATELET COUNT 290 x10e3/uL (140-360); RED BLOOD COUNT 3.48 x10e6/uL (3.6-5.1); RED CELL DISTRIBUTION WIDTH 13.4 % (11.7-14.4)
[2019-02-15 15:56] LABS: INR 1.44; PROTHROMBIN TIME 18.1 seconds (11.9-14.5)
[2019-02-15 15:57] LABS: PARTIAL THROMBOPLASTIN TIME 42.1 seconds (23.8-35.5)
[2019-02-15 16:11] LABS: CREATINE KINASE MB 23.2 ng/mL (0-5.0)
[2019-02-15] MEDS ORDERED: HEPARIN 25,000 UNIT DRIP IV ONE (16:14)
[2019-02-15 16:16] LABS: ALBUMIN 2.8 g/dL (3.5-5.0); ALBUMIN/GLOBULIN RATIO 0.5 (0.8-2.0); ANION GAP 16.3 mmol/L (8-16); CALCIUM 10.2 mg/dL (8.4-10.2); CREATININE, SERUM 1.06 mg/dL (0.57-1.11); POTASSIUM 4.3 mmol/L (3.5-5.1)
[2019-02-15 16:23] LABS: MAGNESIUM 1.8 MG/DL (1.3-2.1)
--- NOTE | 2019-02-15 16:38 | Diagnostic Imaging Report ---
Chest, 1 view, 02/15/2019. History: Right foot numbness. Comparison: None available. Findings: The cardiomediastinal silhouette and pulmonary vasculature are within normal limits for a portable exam. There is no focal consolidation or pleural effusion. Degenerative changes are present in both shoulders. There are no acute osseous or soft tissue abnormalities. Impression: No acute cardiopulmonary abnormality. Signed by: Forest Bailey on 02/15/2019 4:35 PM
[2019-02-15 16:43] LABS: THYROID STIMULATING HORMONE 0.942 uIU/mL (0.350-4.940)
[2019-02-15] MEDS: FAMOTIDINE 20 MG/2 ML VIAL IV SCH (16:58)
[2019-02-15] MEDS: METOPROLOL TARTRATE 25 MG TAB PO SCH ×2 (17:24→21:00)
[2019-02-15] MEDS ORDERED: PIPER-TAZ 3.375 GM 50 ML IV SCH (17:30)
[2019-02-15] MEDS: AZTREONAM 1 GM/NS 50 ML 50 ML IV SCH (17:30)
[2019-02-15] MEDS ORDERED: FENTANYL CITRATE/PF 100MCG/2 ML INJ ONE (17:48)
[2019-02-15] MEDS ORDERED: LIDOCAINE HCL 2% LOCAL 20 ML VIAL ONE (17:48)
[2019-02-15] MEDS ORDERED: HEPARIN SOD/SOD CHLORIDE 2,000 ML ONE (17:48)
[2019-02-15] MEDS ORDERED: MIDAZOLAM HCL 2 MG/2 ML VIAL ONE ×2 (17:48→18:43)
[2019-02-15] MEDS: SODIUM CHLORIDE 0.9% 1000ML 1,000 ML IV SCH (17:48)
[2019-02-15] MEDS ORDERED: IOPAMIDOL 300MG/ML 100 ML INFUS..BTL IV ONE (17:49)
[2019-02-15] MEDS ORDERED: SODIUM CHLORIDE 0.9% 1000ML 1,000 ML ONE ×2 (17:50→19:02)
[2019-02-15] MEDS ORDERED: VANCOMYCIN 1GM/NS 250 ML 250 ML IV SCH (18:00)
[2019-02-15] MEDS: CLINDAMYCIN 300MG 50 ML IV SCH (18:00)
--- NOTE | 2019-02-15 18:06 | History and Physical ---
PRIMARY CARE PHYSICIAN: Dr. Pito Padron. MANAGER HEART FAILURE: Dr. Lexx Marlow. CHIEF COMPLAINT: Right ischemic leg, bilateral leg pain, peripheral vascular disease. HISTORY OF PRESENT ILLNESS: The patient is a very pleasant 83 years female with peripheral vascular disease, claudication. The symptoms and signs of peripheral vascular disease started approximately early this year and since then the patient had multiple workup done. The patient was seen by Dr. Lexx Marlow and had procedures done on February 06, 2019. At that time, she had an abdominal aortic catheter placement, abdominal aortogram, bilateral lower extremity angiogram, and selective catheter placement right femoral artery, left superficial femoral artery, and atherectomy with angioplasty and stent placement to the left femoral artery, secondary thrombectomy of the left femoral artery, and the patient went home on the same day. The patient now came back in with right lower extremity pain. There is redness below the knee area. She is also seemed to have a creatine kinase of 10,160 into rhabdo. The patient's right lower extremity is painful. The area is cool. There is no gross cyanosis. However, there is significant tender to touch on the right lower extremity. The patient is otherwise stable at this time. She has some low-grade temp. No respiratory distress. No chest pain. She does have right lower extremity pain. PAST MEDICAL HISTORY: Bilateral lower extremity peripheral vascular disease status post left lower extremity intervention. She does have hypertension, dyslipidemia, reflux history, and osteoarthritis. PAST SURGICAL HISTORY: Left lower extremity intervention with angiogram on February 06, 2019. She had lower back surgery and neck surgery. SOCIAL HISTORY: The patient does not smoke or use alcohol. No recreational drug. ALLERGIES: PENICILLIN AND PREDNISONE. HOME MEDICATION: Lipitor, benazepril HCTZ, Zyrtec, Plavix, Cymbalta, etodolac, metoprolol succinate, omeprazole, tramadol, and trazodone. PHYSICAL EXAMINATION: VITAL SIGNS: Temperature is 99.6, blood pressure 137/80, pulse rate 92, and respirations 16. GENERAL: The patient is not in acute distress. HEENT: Normocephalic, atraumatic. Pupils reactive. Anicteric. NECK: Supple grossly. PULMONARY: Diminished breath sounds. CARDIOVASCULAR: Regular rate and rhythm. ABDOMEN: Soft. Nondistention. EXTREMITIES: Right lower extremity redness in the area of the right lower extremity below the knee area. It is not involving the right foot. There is some coolness to bilateral lower extremity both foot. There is no gross cyanosis. Pulses are faint. The patient is on heparin drip of note. NEUROLOGIC: No focal deficit. LABORATORY DATA: WBC is 15.9, hemoglobin 9.7, hematocrit 29.5, and platelet is 290. Chemistry; sodium is 135, potassium 4.3, chloride 98, bicarb is 25, BUN is 16, creatinine 1.1, and glucose is 114. AST 208. CK is 10,160. Urinalysis unremarkable. IMPRESSION: 1. Right lower extremity peripheral vascular disease with ischemia. The extension of the ischemia is pending on the angiogram. Notify Dr. Lexx Marlow. Discussed with ER physician, Dr. Handy Hou. Discussed the severely of the right lower extremity pain and finding. 2. Rhabdomyolysis of the right lower extremity. 3. Low-grade fever. 4. Multiple baseline problems. PLAN: Continue with management. IV fluids. Pain control. IV antibiotics. Consultation with Dr. Cleveland Hernandez. Consultation to Dr. Lexx Marlow. Continue with management. We will monitor that leg closely. We will place the patient in ICU. The patient will be on heparin drip. The patient will continue with management closely and monitor the right lower extremity. The patient with pain medication. Discussed with Dr. Handy Hou. Dr. Handy Hou did call Dr. Lexx Marlow on the urgency of the possibility of angiogram. I will consult Dr. Hernandez and will notify him. MD MARY Roblero/TYLER /[id number]
[2019-02-15] MEDS ORDERED: HEPARIN SOD (PORCINE) 1000 UNIT/ML 30ML ONE (19:02)
[2019-02-15] MEDS ORDERED: PROTAMINE SULFATE 10 MG/ML 5 ML VIAL ONE (20:01)
[2019-02-15] MEDS ORDERED: CLOPIDOGREL BISULFATE 75 MG TAB ONE (20:11)
[2019-02-15] MEDS ORDERED: ASPIRIN 325 MG TAB ONE (20:11)
[2019-02-15 20:47] VITALS: BP 173/84
--- NOTE | 2019-02-15 20:50 | NUR ---
Report provided to Danya LUCIANO, review of procedural findings and medications given. Patient drowsy, easily aroused. maintains airway and room air saturations of 96-98%. No gross issues of pressure, pain, pallor or dysrhythmia. IV site patent with NS 0.9% at 100ml/hr by [place] pump. patient hemodynamically stable with hemostasis Left groin dressing CDI w/o s/s of bleeding post 30 minutes of manual pressure. torres to gravity w/o dependent loop and secured. patient transferred to [facility] max assist w/o incident. transported to ICU 189 w/ belongings. No family immediately present- cgf procedure: Right common iliac atherectomy, angioplasty of right ostial and right common illiac Sheath puller: see Mac Lab Meds Given Intra-Procedure Sedatives Versed - 4 mg Fentanyl - 100 mcg Anticoagulants Heparin - 7000 Units Fluids Input - 350 Output - 500 estimate Contrast Isovue 300 - 110 Other Meds plavix 300mg aspirin 325mg
[2019-02-15 21:00] VITALS: BP 153/78
[2019-02-15 22:00] VITALS: BP 148/75
[2019-02-15] MEDS: MORPHINE SULFATE 2 MG/ML SYR 1ML IV PRN (22:06)
[2019-02-15 23:00] VITALS: BP 129/74
[2019-02-15 23:59] VITALS: BP 135/70
[2019-02-16] VITALS (26 sets, daily range): BP systolic 98–168; BP diastolic 62–101
[2019-02-16] MEDS: CLINDAMYCIN 300MG 50 ML IV SCH ×4 (01:04→19:10)
[2019-02-16] MEDS: AZTREONAM 1 GM/NS 50 ML 50 ML IV SCH ×3 (01:28→18:15)
[2019-02-16] MEDS: SODIUM CHLORIDE 0.9% 1000ML 1,000 ML IV SCH ×3 (01:35→11:48)
[2019-02-16] MEDS: MORPHINE SULFATE 2 MG/ML SYR 1ML IV PRN ×3 (01:36→11:10)
--- NOTE | 2019-02-16 01:57 | Consultation ---
DATE OF CONSULTATION: 02/15/2019 REASON FOR CONSULTATION: Ischemic right lower extremity; requested by Dr. Pramod Bell. Alining Inspector Dr. Pito Padron, electrical maintenance man is Dr. Jameson Marlow. HISTORY: I saw and evaluated this patient on February 15, 2019. She is a very nice 83-year-old lady with a history of peripheral arterial disease and claudication. Earlier this year, she had an evaluation. On February 06, 2019, she had an abdominal aortogram, bilateral lower extremity angiogram, and selective catheter placement in the right femoral artery with atherectomy and angioplasty of the left common femoral artery. The procedure was uneventful. The patient went home and had been doing well until today when she re-presented with right lower extremity pain. There was redness below the knee and creatinine was markedly elevated with a presumptive diagnosis of rhabdomyolysis. The right lower extremity was painful and cool. There was no gross cyanosis. There was no history of nonhealing ulcers. No clear history of myocardial infarction. No recent chest pain or fever. No history of nonhealing ulcers. PAST MEDICAL HISTORY: Positive for peripheral arterial disease, hypertension, hyperlipidemia, gastroesophageal reflux. PAST SURGICAL HISTORY: Positive for peripheral arteriogram and peripheral arterial stenting as above. Positive for lower back surgery and neck surgery. SOCIAL: Negative for smoking, alcohol, IV drugs. ALLERGIES: PENICILLIN AND PREDNISONE. MEDICATIONS: At home include Lipitor, hydrochlorothiazide, Zyrtec, Plavix, Cymbalta, metoprolol, omeprazole, tramadol, and trazodone. FAMILY HISTORY: Negative for early coronary artery disease. REVIEW OF SYSTEMS: GENERAL: Positive for fatigue and malaise. NEUROLOGIC: Negative for focal weakness. EXTREMITIES: No dysarthria. HEENT: Positive for decreased vision and decreased hearing. CARDIAC: Negative for chest pain or palpitation. PULMONARY: Negative for shortness of breath or wheezing. GI: No constipation or diarrhea. : Negative for hematuria or dysuria. ENDOCRINE: Negative for polyuria, polydipsia. VASCULAR: Positive as above. SKIN: Positive for rash/erythema on the right lower extremity. HEMATOLOGIC: Negative for clotting or bleeding. INFECTIOUS: Negative for fevers or sweating. PSYCHIATRIC: Negative for depression or anxiety. PHYSICAL EXAMINATION: GENERAL: Thin lady, lying flat in bed in the ICU. VITAL SIGNS: Blood pressure 140/70, pulse 80 and regular, respirations 16, and unlabored. NECK: Supple. Nontender. No JVD. CARDIAC: Shows a regular rate and rhythm. Normal S1 and S2. No S3 or S4. LUNGS: Clear to auscultation percussion bilaterally. ABDOMEN: Globoid, benign. Good bowel sounds. No hepatosplenomegaly. BACK: No CVA tenderness. No muscular spasm. EXTREMITIES: The right lower extremity is cool. There is some erythema along the right calf. The right foot is tender to touch. The left lower extremity is warm and well perfused. VASCULAR: Carotids 2+/2+ bilaterally. No carotid bruits. Radials and femorals 2+/2+ bilaterally. No pulses palpable distal to either lower extremity. SKIN: No rashes or nonhealing ulcers. MUSCULOSKELETAL: Full range of motion showed in all joints. No joint swelling. NEUROLOGIC: Cranial nerves 2 through 12 intact. Sensation intact to light touch and pinprick bilaterally. Strength 5/5 all extremities. LYMPHATICS: Negative for cervical, clavicular, femoral adenopathy. LABORATORIES: White count 15.9, hemoglobin 9.7, hematocrit 29.5, platelet count 290,000. INR is 1.44 with PT 18.1. Sodium 135, potassium 4.3, BUN 16, creatinine 1.06. IMPRESSION: Ischemic right lower extremity. PLANS: I agree with plans for angiogram and possible intervention. Thank you very much for asking me to see this nice lady. MD ALISTAIR Drummond/TYLER /[id number]
[2019-02-16] MEDS: FAMOTIDINE 20 MG/2 ML VIAL IV SCH ×2 (04:59→16:27)
[2019-02-16 05:26] LABS: BASOPHILS % 0.3 % (0.0-1.0); EOSINOPHILS % 0.1 % (0.0-6.0); HEMATOCRIT 23.1 % (34.2-44.1); HEMOGLOBIN 7.5 g/dL (12.0-16.0); LYMPHOCYTES % 13.2 % (18.0-39.1); MEAN CORPUSCULAR HEMOGLOBIN 27.8 pg (28-32); MEAN CORPUSCULAR HGB CONC 32.5 g/dL (31-35); MEAN CORPUSCULAR VOLUME 85.6 fL (81-99); MONOCYTES # (AUTO) 1.8 (0.2-0.8); NEUTROPHILS # (AUTO) 10.9 (2.1-6.9); NEUTROPHILS % 73.7 % (38.7-80.0); PLATELET COUNT 270 x10e3/uL (140-360); RED CELL DISTRIBUTION WIDTH 13.4 % (11.7-14.4)
[2019-02-16 05:43] LABS: CREATINE KINASE MB 20.1 ng/mL (0-5.0)
[2019-02-16 06:04] LABS: ALANINE AMINOTRANSFERASE 53 IU/L (0-55); ALBUMIN 2.1 g/dL (3.5-5.0); ALBUMIN/GLOBULIN RATIO 0.5 (0.8-2.0); ALKALINE PHOSPHATASE 48 IU/L (40-150); ANION GAP 15.6 mmol/L (8-16); BLOOD UREA NITROGEN 12 mg/dL (7-26); BUN/CREATININE RATIO 13 (6-25); CALCIUM 8.9 mg/dL (8.4-10.2); CARBON DIOXIDE 21 mmol/L (22-29); CHLORIDE 106 mmol/L (98-107); CHOL/HDL RATIO 4.1 (3.0-3.6); CHOLESTEROL 99 MD/DL (0-199); CREATININE, SERUM 0.91 mg/dL (0.57-1.11); EST GLOMERULAR FILTRATION RATE > 60 ML/MIN (60-); GLUCOSE 113 mg/dL (74-118); HDL CHOLESTEROL 24 MG/DL (40-60); LDL CHOLESTEROL 54 MG/DL (60-130); MAGNESIUM 1.7 MG/DL (1.3-2.1); PHOSPHORUS 2.5 MG/DL (2.3-4.7); POTASSIUM 3.6 mmol/L (3.5-5.1); SODIUM 139 mmol/L (136-145); TRIGLYCERIDES 103 MG/DL (0-149)
[2019-02-16] MEDS: HEPARIN 25,000 UNIT 1,200 UNIT in DEXTROSE 5% 250ML 250 ML IV SCH ×2 (08:00→19:15)
[2019-02-16] MEDS: METOPROLOL TARTRATE 25 MG TAB PO SCH ×2 (09:13→21:20)
[2019-02-16] MEDS: ASPIRIN 81 MG ENTERIC COATED PO SCH ×2 (09:13→10:57)
[2019-02-16] MEDS: CLOPIDOGREL BISULFATE 75 MG TAB PO SCH ×2 (09:13→10:57)
--- NOTE | 2019-02-16 09:30 | NUR ---
Noted suspected hematoma to the left hip flexion. No bruising. No further drainage to the gauze covering the arterial puncture site. Called to Dr Marlow's office to page and notify physician. The initial area is marked and is aprox 6 x 15 cm.
--- NOTE | 2019-02-16 10:30 | NUR ---
Dr Gardner has been in to evaluated left lower abdomen hematoma site. Orders for: arterial doppler to eval perfusion, monitor hematoma, and report all items to Dr Gardner this afternoon.
--- NOTE | 2019-02-16 11:49 | NUR ---
DPA INTERRUPTED DUE TO MD CAM FOR PT ASSESSMENT
--- NOTE | 2019-02-16 11:56 | NUR ---
CONTINUATION OF DPA; NO HOME HEALTH, NO DAILY TREATMENTS RETIRED NO DME AT PRESENT RETURN HOME AT D/C
[2019-02-16 13:47] LABS: HEMOGLOBIN 6.4 g/dL (12.0-16.0)
--- NOTE | 2019-02-16 13:47 | NUR ---
H/H = 6.4/19.[address] Irma Gardner office to page the physician.
[2019-02-16 13:48] LABS: HEMATOCRIT 19.4 % (34.2-44.1)
--- NOTE | 2019-02-16 14:31 | Consultation ---
DATE OF CONSULTATION: 02/16/2019 Renal Consultation REASON FOR CONSULTATION: Rhabdomyolysis. HISTORY OF PRESENT ILLNESS: An 83-year-old female with a history of peripheral arterial disease and hypertension, presented to [facility] with right lower extremity pain. The patient was seen by Dr. Marlow on 02/06/2019, and underwent lower extremity angiogram with intervention in her left lower extremity. As per the patient, she had 100% occlusion. The patient, however, stated she continued to have pain in her right lower extremity and pain became very severe to the point where she could not tolerate it. She presented to the emergency room. She was found to have rhabdo. The lower extremity was noted to be cool. The patient was taken immediately for angiogram and underwent angioplasty and was admitted to the ICU. Continue with IV fluids. Nephrology was consulted for severe rhabdomyolysis. REVIEW OF SYSTEMS: A 12-point review of systems completed. All systems negative other than in the HPI. PAST MEDICAL HISTORY: 1. Peripheral arterial disease with stent to the left lower extremity and angioplasty to the right lower extremity. 2. Hypertension. 3. Dyslipidemia. 4. GERD. 5. Osteoarthritis. PAST SURGICAL HISTORY: 1. Back surgery. 2. Cholecystectomy. SOCIAL HISTORY: No tobacco. No alcohol. No IV drugs. FAMILY HISTORY: No family history of kidney disease. ALLERGIES: PENICILLIN AND PREDNISONE. CURRENT MEDICATIONS: See list, includes normal saline 125 mL an hour. PHYSICAL EXAMINATION: VITAL SIGNS: Blood pressure 134/68, pulse 111, temperature 99, and respiratory rate 19. GENERAL: No apparent distress. HEENT: Oropharynx clear. No scleral icterus. No peripheral edema. NECK: Supple. No elevation of jugular venous pressure. No lymphadenopathy. CHEST: Clear to auscultation anteriorly bilaterally. CARDIOVASCULAR: Regular rhythm. No murmurs or rubs. ABDOMEN: Soft. Positive bowel sounds. No tenderness. No rebound. EXTREMITIES: No edema. No clubbing. No cyanosis except for in the right lower extremity some swelling, otherwise extremity is warm. LABORATORY DATA: Sodium 139, potassium 3.6, chloride 106, CO2 21, BUN 12, and creatinine 0.91, down from 1.06. CK 8637, down from 10,160. Troponin 0.024. Albumin 2.1. Urine canceled. ASSESSMENT AND PLAN: 1. Rhabdomyolysis secondary to the ischemic leg. Continue with IV fluids. We will continue to monitor and if kidney function worsens or CK does not continue to improve, then we will change the fluids to include bicarbonate. For now, continue normal saline. 2. Hyponatremia, improved with isotonic fluid. 3. Peripheral arterial disease, status post angioplasty. Cardiology and CV Surgery following. 4. Hypertension. Continue home medications. I have discussed with Dr. Bell. MD TAMMIE Steven/MODL /[id number]
--- NOTE | 2019-02-16 15:40 | NUR ---
Second call to Dr Gardner office to page physician for H/H 6.4/19.4
[2019-02-16] MEDS ORDERED: SODIUM CHLORIDE 0.9% 250ML 250 ML IV ONE (16:00)
--- NOTE | 2019-02-16 16:00 | NUR ---
Call to Dr Bell to notify of temp 101.4, H/H 6.4/19.4 and no return call from cardiology. Orders received for 2 units PRBC and IV tylenol. Advised to give the IV tylenol, get pt's temp down prior to transfusing blood.
[2019-02-16] MEDS: DULOXETINE HCL 30 MG DELAYED RELEASE PO SCH (16:27)
--- NOTE | 2019-02-16 16:50 | NUR ---
Have called Dr Bell to advise Dr Gardner wants to give one unit of prbc only. Dr Bell agreed to give one unit of prbc at this time today. He also advised he wants a second lasix 20mg ivp, if a second unit of prbc is given.
[2019-02-16] MEDS: ACETAMINOPHEN 1000 MG/100 ML IV PRN (16:52)
[2019-02-16 16:55] LABS: CREATINE KINASE MB 12.4 ng/mL (0-5.0)
[2019-02-16] MEDS ORDERED: SODIUM CHLORIDE 0.9% 500ML 500 ML IV ONE (17:15)
--- NOTE | 2019-02-16 17:30 | NUR ---
Dr Marlow in with pt, evaluated hematoma. Reported suspected extension of hematoma to left upper thigh area. This was reported to Dr Gardner with call to report follow up labs this afternoon. Dr Marlow does not suspect the hematoma extending. The cat scan has not been done yet, and Dr Marlow concurs to give contrast with CT to evaluate.
[2019-02-16] MEDS ORDERED: FUROSEMIDE INJ 10 MG/ML 2 ML VIAL IV SCH (18:00)
--- NOTE | 2019-02-16 18:07 | Progress Note ---
DATE: 02/16/2019 Cardiology Progress Note SUBJECTIVE: The patient denies chest pain or shortness of breath. She continues to have pain at the right leg. OBJECTIVE: VITAL SIGNS: Temperature 98.6 degrees, pulse 83, respiratory rate 23, blood pressure 128/89, and oxygen saturation 100% on room air. GENERAL: Awake, alert, elderly woman, no acute distress. LUNGS: Clear to auscultation bilaterally. No wheezes or crackles. CARDIOVASCULAR: Normal rate, regular rhythm. No murmur. Normal S1, S2. ABDOMEN: Soft, nontender. EXTREMITIES: No edema. Dopplerable pulses. Right lower extremity warm to palpation. CARDIAC MEDICATIONS: 1. Plavix 75 mg p.o. daily. 2. Aspirin 81 mg p.o. daily. 3. Metoprolol tartrate 25 mg p.o. q.12 hours. 4. Atorvastatin 20 mg p.o. at bedtime. LABORATORY DATA: WBC 14.81, hemoglobin 7.5, hematocrit 23.1, platelets 270. Sodium 139, potassium 3.6, chloride 106, CO2 of 21, BUN 12, creatinine 0.91. CK 10,160, CK-MB 23.2. Troponin 0.024. Telemetry, normal sinus rhythm. IMPRESSION: 1. Ischemia of the right lower extremity, status post peripheral angiogram with percutaneous transluminal angioplasty. 2. Rhabdomyolysis secondary to ischemia. 3. Hypertension. 4. Anemia. 5. Peripheral arterial disease with recent left SFA popliteal atherectomy and stent with resulting three vessel runoff to the left foot. RECOMMENDATIONS: Continue aspirin and Plavix. No anticoagulation at this time given acute anemia likely secondary to procedural blood loss. The patient does have suspect hematoma on the left abdomen. We will proceed with CT of the abdomen and pelvis for further evaluation. One unit of PRBC transfusion has been ordered due to continued decline in hemoglobin and hematocrit. Continue IV fluids for rhabdomyolysis. Continue home cardiac medications otherwise. Pain control. Thank you for this consult. We will continue to follow. Nisreen Gardner MD ABS/MODL /[id number]
--- NOTE | 2019-02-16 18:28 | Diagnostic Imaging Report ---
EXAMINATION: CT of the abdomen and pelvis with contrast. TECHNIQUE: Helical CT images of the abdomen and pelvis were performed from the lung bases to the lesser trochanters after the intravenous administration of 100 cc of Isovue 300 and the oral administration of none. Coronal and sagittal reformatted images were obtained. Dose modulation, iterative reconstruction, and/or weight based adjustment of the mA/kV was utilized to reduce the radiation dose to as low as reasonably achievable. COMPARISON: None. CLINICAL HISTORY:Hematoma, left groin DISCUSSION: ABDOMEN/PELVIS: LOWER THORAX:Unremarkable. HEPATOBILIARY: No focal hepatic lesions. No intra-or extrahepatic biliary ductal dilation. Cholecystectomy. SPLEEN: No splenomegaly. PANCREAS: No focal masses or ductal dilatation. ADRENALS: No adrenal nodules. KIDNEYS/URETERS: No hydronephrosis. 1.3 cm right renal cyst. PELVIC ORGANS/BLADDER: Mckeon catheter within the bladder. Hysterectomy. Scattered diverticulosis without inflammatory change. Appendix normal. PERITONEUM/RETROPERITONEUM: No free air or fluid. LYMPH NODES: No intra-abdominal, retroperitoneal, pelvic or inguinal lymphadenopathy. VESSELS: Vascular calcifications. GI TRACT: No distention or wall thickening. BONES AND SOFT TISSUE: No bony destructive lesions. Bilateral hip degenerative arthrosis. Prior lower lumbar posterior decompression. Multilevel facet arthropathy. Soft tissue stranding extending from the left inguinal region superiorly along the anterior lateral abdominal wall with more discrete hematoma measuring approximately 3.3 cm image 62. No retroperitoneal hemorrhage. IMPRESSION: Left inguinal stranding/hemorrhage and 3 cm hematoma in the superficial soft tissues. No retroperitoneal bleed. Signed by: Dr. Levy Herrera M.D. on 02/16/2019 6:25 PM
[2019-02-16] MEDS ORDERED: SODIUM CHLORIDE 0.9% 250ML 250 ML ONE (20:40)
[2019-02-16] MEDS: ATORVASTATIN 20 MG TAB PO SCH (21:19)
[2019-02-16] MEDS ORDERED: SODIUM CHLORIDE 0.9% 50ML 50 ML ONE (22:21)
[2019-02-16] MEDS ORDERED: IOPAMIDOL 370 MG/ML 200 ML INFUS..BTL INJ ONE (22:21)
[2019-02-16] MEDS ORDERED: FUROSEMIDE INJ 10 MG/ML 4 ML VIAL ONE (23:22)
[2019-02-17] VITALS (24 sets, daily range): BP systolic 126–165; BP diastolic 61–109
[2019-02-17] MEDS: CLINDAMYCIN 300MG 50 ML IV SCH ×4 (00:08→18:19)
[2019-02-17] MEDS: AZTREONAM 1 GM/NS 50 ML 50 ML IV SCH ×3 (01:09→16:57)
[2019-02-17] MEDS: SODIUM CHLORIDE 0.9% 1000ML 1,000 ML IV SCH ×3 (01:29→16:59)
[2019-02-17] MEDS: FAMOTIDINE 20 MG/2 ML VIAL IV SCH ×2 (04:36→16:58)
[2019-02-17] MEDS: ACETAMINOPHEN 1000 MG/100 ML IV PRN ×2 (04:38→19:38)
[2019-02-17 05:21] LABS: BASOPHILS % 0.3 % (0.0-1.0); EOSINOPHILS % 0.2 % (0.0-6.0); HEMATOCRIT 24.8 % (34.2-44.1); LYMPHOCYTES # (AUTO) 1.8 (1.0-3.2); LYMPHOCYTES % 12.7 % (18.0-39.1); MEAN CORPUSCULAR HEMOGLOBIN 27.3 pg (28-32); MEAN CORPUSCULAR HGB CONC 32.3 g/dL (31-35); MEAN CORPUSCULAR VOLUME 84.6 fL (81-99); MONOCYTES # (AUTO) 1.3 (0.2-0.8); MONOCYTES % 9.4 % (4.4-11.3); NEUTROPHILS # (AUTO) 10.8 (2.1-6.9); NEUTROPHILS % 76.3 % (38.7-80.0); PLATELET COUNT 234 x10e3/uL (140-360); RED BLOOD COUNT 2.93 x10e6/uL (3.6-5.1); RED CELL DISTRIBUTION WIDTH 13.4 % (11.7-14.4)
[2019-02-17 05:53] LABS: CREATINE KINASE MB 14.1 ng/mL (0-5.0)
[2019-02-17] MEDS: CLOPIDOGREL BISULFATE 75 MG TAB PO SCH (08:12)
[2019-02-17] MEDS: DULOXETINE HCL 30 MG DELAYED RELEASE PO SCH ×2 (08:12→17:05)
[2019-02-17] MEDS: ASPIRIN 81 MG ENTERIC COATED PO SCH (08:12)
[2019-02-17] MEDS: METOPROLOL TARTRATE 25 MG TAB PO SCH ×2 (08:12→20:03)
[2019-02-17] MEDS: MORPHINE SULFATE 2 MG/ML SYR 1ML IV PRN ×2 (09:39→13:12)
--- NOTE | 2019-02-17 12:51 | Progress Note ---
DATE: 02/17/2019 Cardiology Progress Note SUBJECTIVE: The patient complains of some pain in her right calf and lower extremity area. That is not new, however, has continued. Denies any shortness of breath or chest pain or any pain to her left lower extremity. OBJECTIVE: VITAL SIGNS: Temperature 98.1, pulse 89, respiratory rate 22, blood pressure 155/86, and oxygen saturation 99% on room air. GENERAL: Alert and oriented x3. Resting comfortably in the bed. Does not appear to be in any acute distress. NECK: Supple. No JVD noted. CARDIOVASCULAR: Normal rate and rhythm. Normal S1 and S2. No murmurs. No gallops. LUNGS: Clear to auscultation throughout. ABDOMEN: Soft and nontender. EXTREMITIES: Lower extremity palpable pulses. Right lower extremity warm to the touch. Some pain to palpation of the right knee and calf area. CARDIOVASCULAR MEDICATIONS: Plavix 75 mg p.o. daily, aspirin 81 mg p.o. daily, metoprolol 25 mg p.o. q.12 hours, atorvastatin 20 mg p.o. at bedtime, and heparin IV drip. LABORATORY DATA: WBC 14.12, hemoglobin 8.0, hematocrit 24.8, and platelets 234. Sodium 139, potassium 3.6, BUN 12, and creatinine 0.90. Creatine kinase 7,176 and CK-MB 14.10. Troponin 0.028. CT scan of her abdomen and pelvis with contrast from yesterday with a left inguinal hemorrhage, 3 cm hematoma in the superficial soft tissues. No retroperitoneal bleed. TELEMETRY: Normal sinus rhythm. IMPRESSION: 1. Ischemia of the right lower extremity, status post peripheral angiogram with percutaneous transluminal angioplasty. 2. Rhabdomyolysis secondary to ischemia. 3. Hypertension. 4. Anemia. 5. Peripheral arterial disease, status post recent left SFA popliteal atherectomy and stent with resulting three-vessel runoff to the left foot. 6. Pain. RECOMMENDATIONS: Continue the above-listed cardiac medications. Continue pain control. No anticoagulation at this time given her anemia and also transfusion yesterday. CT scan of the abdomen with no retroperitoneal bleed. We will continue to monitor. Hematoma assessed and appears to be improving. Continue IV fluids for rhabdomyolysis. Continue pain control per primary team. We will continue to monitor this patient very closely. The patient will require rehabilitation upon discharge. Dictated by Su W Varpon, EXTERN MD CLIVE Cunningham/TYLER /[id number]
[2019-02-17] MEDS: ATORVASTATIN 20 MG TAB PO SCH (20:03)
[2019-02-18] VITALS (20 sets, daily range): BP systolic 127–177; BP diastolic 59–98
[2019-02-18] MEDS ORDERED: ACETAMINOPHEN 1000 MG/100 ML IV SCH
[2019-02-18] MEDS: TRAZODONE HCL 50 MG TAB PO PRN ×2 (00:24→21:00)
[2019-02-18] MEDS: CLINDAMYCIN 300MG 50 ML IV SCH ×5 (00:24→23:37)
[2019-02-18] MEDS: SODIUM CHLORIDE 0.9% 1000ML 1,000 ML IV SCH ×3 (00:25→19:23)
[2019-02-18] MEDS: AZTREONAM 1 GM/NS 50 ML 50 ML IV SCH ×3 (00:57→16:17)
[2019-02-18] MEDS: FAMOTIDINE 20 MG/2 ML VIAL IV SCH ×2 (05:11→16:17)
[2019-02-18 05:36] LABS: ANION GAP 14.3 mmol/L (8-16); BLOOD UREA NITROGEN 5 mg/dL (7-26); BUN/CREATININE RATIO 6 (6-25); CALCIUM 8.2 mg/dL (8.4-10.2); CARBON DIOXIDE 18 mmol/L (22-29); CHLORIDE 110 mmol/L (98-107); CREATININE, SERUM 0.79 mg/dL (0.57-1.11); EST GLOMERULAR FILTRATION RATE > 60 ML/MIN (60-); GLUCOSE 92 mg/dL (74-118); POTASSIUM 3.3 mmol/L (3.5-5.1); SODIUM 139 mmol/L (136-145)
[2019-02-18 06:21] LABS: CREATINE KINASE 5927 IU/L (29-168)
--- NOTE | 2019-02-18 07:00 | NUR ---
Rec'd patient, resting, alert, oral temp 102.4. Called Dr Bell to inquire if any further orders necessary. Awaiting call back.
[2019-02-18] MEDS: ACETAMINOPHEN 1000 MG/100 ML IV PRN ×2 (07:03→19:05)
[2019-02-18] MEDS: HEPARIN 25,000 UNIT 1,200 UNIT in DEXTROSE 5% 250ML 250 ML IV SCH (07:03)
[2019-02-18] MEDS: ONDANSETRON HCL INJ 2MG/ML 2ML 2 MG/ML VIAL IV PRN (08:52)
[2019-02-18] MEDS: ASPIRIN 81 MG ENTERIC COATED PO SCH (08:52)
[2019-02-18] MEDS: MORPHINE SULFATE 2 MG/ML SYR 1ML IV PRN ×3 (08:52→16:23)
[2019-02-18] MEDS: METOPROLOL TARTRATE 25 MG TAB PO SCH ×2 (08:52→20:05)
[2019-02-18] MEDS: DULOXETINE HCL 30 MG DELAYED RELEASE PO SCH ×2 (08:52→16:17)
[2019-02-18] MEDS: CLOPIDOGREL BISULFATE 75 MG TAB PO SCH (08:52)
[2019-02-18 09:14] LABS: BASOPHILS % 0.1 % (0.0-1.0); EOSINOPHILS % 0.1 % (0.0-6.0); LYMPHOCYTES # (AUTO) 1.2 (1.0-3.2); LYMPHOCYTES % 8.3 % (18.0-39.1); MEAN CORPUSCULAR HEMOGLOBIN 28.2 pg (28-32); MEAN CORPUSCULAR HGB CONC 33.5 g/dL (31-35); MEAN CORPUSCULAR VOLUME 84.2 fL (81-99); MONOCYTES % 6.4 % (4.4-11.3); NEUTROPHILS # (AUTO) 12.5 (2.1-6.9); NEUTROPHILS % 83.7 % (38.7-80.0); PLATELET COUNT 249 x10e3/uL (140-360); RED BLOOD COUNT 2.73 x10e6/uL (3.6-5.1); RED CELL DISTRIBUTION WIDTH 13.8 % (11.7-14.4)
[2019-02-18 09:20] LABS: HEMOGLOBIN 7.7 g/dL (12.0-16.0)
[2019-02-18] MEDS ORDERED: POTASSIUM CHLORIDE 20 MEQ TAB CR PO ONE (09:30)
[2019-02-18] MEDS ORDERED: POTASSIUM CHLORIDE 10MEQ EA PO ONE (09:30)
--- NOTE | 2019-02-18 10:00 | Diagnostic Imaging Report ---
EXAMINATION: CHEST SINGLE (PORTABLE) INDICATION: Fever. COMPARISON: Chest radiograph 02/15/2019. FINDINGS: TUBES and LINES: None. LUNGS: Lungs are well inflated. There is increased patchy opacity in the left lower lung. No evidence of pulmonary edema. PLEURA: No pleural effusion or pneumothorax. HEART AND MEDIASTINUM: The cardiomediastinal silhouette is unremarkable. BONES AND SOFT TISSUES: No acute osseous abnormality. UPPER ABDOMEN: No free air under the diaphragm. IMPRESSION: Increased patchy opacity in the left lower lung, which may represent atelectasis, although early pneumonia is possible in the appropriate clinical setting. Signed by: Dr. Brian Martinez MD on 02/18/2019 9:57 AM
[2019-02-18] MEDS: AMLODIPINE BESYLATE 5 MG TAB PO SCH (12:05)
--- NOTE | 2019-02-18 13:49 | Progress Note ---
DATE: 02/18/2019 SUBJECTIVE: The patient complains of continued pain to the right lower extremity. Also, febrile last night. T-max 102.4. Denies any chest pain. OBJECTIVE: VITAL SIGNS: Temperature 102.4, pulse 95, respiratory rate 21, blood pressure 177/74, and oxygen saturation 100% on room air. CARDIOVASCULAR MEDICATIONS: Metoprolol 25 mg p.o. q.12 hours, Plavix 75 p.o. daily, aspirin 81 p.o. daily, atorvastatin 20 mg p.o. at bedtime. LABORATORY DATA: Sodium 139, potassium 3.3, BUN 5, creatinine 0.79, creatine kinase 5927. PHYSICAL EXAMINATION: GENERAL: Alert and oriented x3. Resting comfortably in bed. States that she does not feel well today and continues to have pain. NECK: Supple. No JVD noted. CARDIOVASCULAR: Regular rate and rhythm. Normal S1, S2. No murmurs, no gallops. LUNGS: Clear to auscultation. ABDOMEN: Soft, nontender. EXTREMITIES: Lower extremities, palpable pulses. Right lower extremity warm to the touch with some swelling and pain with touch and also noted a drop foot. TELEMETRY: Normal sinus rhythm. IMPRESSION: 1. Ischemia of the right lower extremity, status post peripheral angiogram with percutaneous transluminal angioplasty. 2. Rhabdomyolysis secondary to ischemia, improving. 3. Hypertension. 4. Anemia. 5. Peripheral arterial disease status post recent left SFA popliteal atherectomy and stent resulting to a three-vessel runoff to the left foot. 6. Pain. 7. Leukocytosis and febrile. RECOMMENDATION: Antimicrobial therapy initiated by primary team. Continue to monitor. Consider repeat chest x-ray and also CBC this morning. Continue the rest of the above-mentioned cardiac medication and also adjust medications for better blood pressure control. No anticoagulation at this time given the patient anemia. CT scan of the abdomen with no retroperitoneal bleed. Hematoma to the left groin continues to improve. Continue IV fluids. Pain management per primary team. We will need to continue to monitor this patient very closely. However, she will require rehab upon discharge. Dictated by Su Harrington NP MD CLIVE Cunningham/TYLER /[id number]
[2019-02-18] MEDS: TIMOLOL MALEATE(OPTHALMIC) 1 EA BTL OP SCH (16:11)
--- NOTE | 2019-02-18 19:11 | NUR ---
Message left with Dr. Marlow regarding orders to transfer pt to Med Surg.
[2019-02-18] MEDS: ATORVASTATIN 20 MG TAB PO SCH (20:05)
[2019-02-18] MEDS: LATANOPROST(OPTH) 2.5 ML BTL OP SCH (20:05)
[2019-02-19] VITALS (7 sets, daily range): BP systolic 123–158; BP diastolic 55–88
[2019-02-19] MEDS: AZTREONAM 1 GM/NS 50 ML 50 ML IV SCH (00:50)
[2019-02-19] MEDS: FAMOTIDINE 20 MG/2 ML VIAL IV SCH (04:37)
[2019-02-19] MEDS: SODIUM CHLORIDE 0.9% 1000ML 1,000 ML IV SCH ×2 (04:37→15:48)
[2019-02-19] MEDS: CLINDAMYCIN 300MG 50 ML IV SCH (05:31)
[2019-02-19] MEDS: ACETAMINOPHEN 1000 MG/100 ML IV PRN ×2 (05:31→22:30)
[2019-02-19 05:33] LABS: MAGNESIUM 1.4 MG/DL (1.3-2.1); PHOSPHORUS 2.1 MG/DL (2.3-4.7)
[2019-02-19 05:57] LABS: BASOPHILS % 0.2 % (0.0-1.0); EOSINOPHILS # (AUTO) 0.1 (0.0-0.4); EOSINOPHILS % 0.4 % (0.0-6.0); HEMOGLOBIN 7.2 g/dL (12.0-16.0); LYMPHOCYTES % 11.7 % (18.0-39.1); MEAN CORPUSCULAR HEMOGLOBIN 28.8 pg (28-32); MEAN CORPUSCULAR HGB CONC 33.3 g/dL (31-35); MEAN CORPUSCULAR VOLUME 86.4 fL (81-99); MONOCYTES # (AUTO) 1.5 (0.2-0.8); MONOCYTES % 8.6 % (4.4-11.3); NEUTROPHILS # (AUTO) 13.4 (2.1-6.9); NEUTROPHILS % 77.8 % (38.7-80.0); PLATELET COUNT 253 x10e3/uL (140-360); RED CELL DISTRIBUTION WIDTH 14.2 % (11.7-14.4)
[2019-02-19 05:59] LABS: ANION GAP 11.6 mmol/L (8-16); BLOOD UREA NITROGEN 6 mg/dL (7-26); BUN/CREATININE RATIO 8 (6-25); CALCIUM 8.1 mg/dL (8.4-10.2); CARBON DIOXIDE 23 mmol/L (22-29); CHLORIDE 109 mmol/L (98-107); CREATININE, SERUM 0.73 mg/dL (0.57-1.11); EST GLOMERULAR FILTRATION RATE > 60 ML/MIN (60-); GLUCOSE 93 mg/dL (74-118); POTASSIUM 3.6 mmol/L (3.5-5.1); SODIUM 140 mmol/L (136-145)
[2019-02-19 06:08] LABS: HEMATOCRIT 21.6 % (34.2-44.1)
[2019-02-19] MEDS ORDERED: MEROPENEM 1GM 100 ML IV SCH (09:00)
[2019-02-19] MEDS: MORPHINE SULFATE 2 MG/ML SYR 1ML IV PRN ×3 (09:40→20:56)
[2019-02-19] MEDS: AMLODIPINE BESYLATE 5 MG TAB PO SCH (09:47)
[2019-02-19] MEDS: CLOPIDOGREL BISULFATE 75 MG TAB PO SCH (09:48)
[2019-02-19] MEDS: ASPIRIN 81 MG ENTERIC COATED PO SCH (09:49)
[2019-02-19] MEDS: TIMOLOL MALEATE(OPTHALMIC) 1 EA BTL OP SCH ×2 (09:49→17:00)
[2019-02-19] MEDS: DULOXETINE HCL 30 MG DELAYED RELEASE PO SCH ×2 (09:49→16:55)
[2019-02-19] MEDS: METOPROLOL TARTRATE 25 MG TAB PO SCH ×2 (09:50→22:27)
[2019-02-19] MEDS: FAMOTIDINE 20 MG TAB PO SCH (16:55)
--- NOTE | 2019-02-19 18:04 | NUR ---
TAKEN EARLIER AT 16:[address] SCAN OF CHEST WITHOUT CONTRAST AND RETURNED AT 17:20 AND RESTING COMFORTABLY IN BED WITHOUT ANY COMPLAINTS OF PAIN OR DISCOMFORT. RIGHT LEG CONTINUES TO BE ELEVATED ON PILLOW AND TOLERATING WELL. RIGHT FOOT PEDAL PULSES CONFIRMED VIA DOPPLER AND EXTREMITITIES ARE PINK, AND WARM WITH BRISK CAPILLARY REFILL.
[2019-02-19 19:13] LABS: CLARITY,URINE CLEAR (CLEAR); COLOR,URINE YELLOW (YELLOW)
[2019-02-19 19:14] LABS: BILIRUBIN,URINE NEGATIVE (NEGATIVE); KETONES,URINE NEGATIVE (NEGATIVE); LEUKOCYTE ESTERASE ,URINE NEGATIVE (NEGATIVE); NITRITE,URINE NEGATIVE (NEGATIVE); PROTEIN,URINE DIPSTICK TRACE (NEGATIVE); URINE UROBILINOGEN 0.2 mg/dL (0.2 - 1)
[2019-02-19 19:18] LABS: BACTERIA,URINE FEW /HPF
--- NOTE | 2019-02-19 20:37 | Progress Note ---
DATE: 02/19/2019 Cardiology Progress Note SUBJECTIVE: No major events overnight. OBJECTIVE: VITAL SIGNS: Temperature afebrile, pulse 82, respiratory rate 24, blood pressure 154/72, and saturating 100% on room air. GENERAL: Elderly female, in no acute distress. CARDIOVASCULAR: Regular rate and rhythm. No murmurs, rubs, or gallops. LUNGS: Clear to auscultation bilaterally. ABDOMEN: Soft, nontender, nondistended. NEURO AND PSYCH: Alert and oriented to person, place, and time. Normal affect. ASSESSMENT AND PLAN: 1. Ischemia of the right lower extremity, status post peripheral angiogram with percutaneous transluminal angioplasty. 2. Rhabdomyolysis secondary to ischemia, now improved. 3. Hypertension. 4. Anemia. 5. Peripheral arterial disease, status post SFA popliteal atherectomy and stent with resulting three-vessel runoff in the left foot recently. 6. Right footdrop. 7. Leukocytosis. RECOMMENDATIONS: Antibiotics per primary team. Continue to monitor. Left groin hematoma stable. Blood counts are stable. Right lower extremity is now well perfused, no issues. Exercise using physical therapy. Continue aspirin and Plavix. No need for IV heparin. Thank you for this consult. We will continue to follow. MD NASIR Cheney/TYLER /[id number]
--- NOTE | 2019-02-19 21:17 | Diagnostic Imaging Report ---
EXAMINATION: CT scan of the chest without contrast. TECHNIQUE: Spiral CT images of the chest were performed from the lung apices to the level of the adrenal glands. No intravenous contrast was administered . Coronal and sagittal reformatted images were obtained. COMPARISON: Portable chest 02/18/2019 CLINICAL HISTORY:Rule out pneumonia DISCUSSION: ABSENCE OF INTRAVENOUS CONTRAST DECREASES SENSITIVITY FOR DETECTION OF FOCAL LESIONS AND VASCULAR PATHOLOGY. LINES/TUBES: None. LUNGS AND AIRWAYS: Minimal bilateral lower lobe linear opacities, likely representing subsegmental atelectasis. No consolidation, nodules or masses. Airways are clear, without endobronchial lesions. PLEURA: No pneumothorax or pleural effusions. HEART AND MEDIASTINUM: Thyroid is unremarkable. Heart size is normal. No pericardial effusion. Atherosclerotic calcification of the coronary arteries, aortic valves and thoracic aorta. The aorta is nonaneurysmal. Main pulmonary artery is normal in caliber. 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 LYMPH NODES: Calcified right lower paratracheal and right hilar lymph nodes. No mediastinal, hilar or axillary adenopathy. ABDOMEN: Limited unenhanced views of the upper abdomen show no abnormality within the visualized liver, spleen, pancreas, or kidneys. The adrenal glands are unremarkable. Cholecystectomy clips. BONES AND SOFT TISSUES: Multilevel degenerative disc changes in the thoracic spine. No aggressive lytic lesions. Degenerative changes in bilateral glenohumeral joints. Soft tissues are grossly unremarkable. IMPRESSION: 1. No CT evidence of pneumonia. 2. Prior granulomatous disease. Signed by: Dr. Mayank Escobar M.D. on 02/19/2019 9:14 PM
[2019-02-19] MEDS: ATORVASTATIN 20 MG TAB PO SCH (22:26)
[2019-02-19] MEDS: LATANOPROST(OPTH) 2.5 ML BTL OP SCH (22:26)
[2019-02-19] MEDS: TRAZODONE HCL 50 MG TAB PO PRN (22:29)
[2019-02-20] VITALS (8 sets, daily range): BP systolic 115–159; BP diastolic 55–93
[2019-02-20] MEDS: MORPHINE SULFATE 2 MG/ML SYR 1ML IV PRN ×5 (01:22→21:44)
[2019-02-20] MEDS: SODIUM CHLORIDE 0.9% 1000ML 1,000 ML IV SCH ×2 (05:31→10:09)
[2019-02-20 06:05] LABS: BASOPHILS % 0.3 % (0.0-1.0); EOSINOPHILS # (AUTO) 0.1 (0.0-0.4); EOSINOPHILS % 0.8 % (0.0-6.0); HEMOGLOBIN 7.1 g/dL (12.0-16.0); LYMPHOCYTES # (AUTO) 2.1 (1.0-3.2); LYMPHOCYTES % 13.5 % (18.0-39.1); MEAN CORPUSCULAR HEMOGLOBIN 27.8 pg (28-32); MEAN CORPUSCULAR VOLUME 87.1 fL (81-99); MONOCYTES # (AUTO) 1.4 (0.2-0.8); MONOCYTES % 8.8 % (4.4-11.3); NEUTROPHILS # (AUTO) 11.8 (2.1-6.9); NEUTROPHILS % 75.1 % (38.7-80.0); PLATELET COUNT 263 x10e3/uL (140-360); RED BLOOD COUNT 2.55 x10e6/uL (3.6-5.1); RED CELL DISTRIBUTION WIDTH 14.4 % (11.7-14.4)
[2019-02-20 06:26] LABS: ANION GAP 11.3 mmol/L (8-16); BLOOD UREA NITROGEN 6 mg/dL (7-26); BUN/CREATININE RATIO 8 (6-25); CALCIUM 8.2 mg/dL (8.4-10.2); CARBON DIOXIDE 23 mmol/L (22-29); CHLORIDE 108 mmol/L (98-107); CREATININE, SERUM 0.72 mg/dL (0.57-1.11); EST GLOMERULAR FILTRATION RATE > 60 ML/MIN (60-); GLUCOSE 91 mg/dL (74-118); POTASSIUM 3.3 mmol/L (3.5-5.1); SODIUM 139 mmol/L (136-145)
[2019-02-20 06:38] LABS: HEMATOCRIT 22.2 % (34.2-44.1)
--- NOTE | 2019-02-20 06:50 | NUR ---
Dr. Bell called and notified of Hgb of 7.1, no new orders
[2019-02-20] MEDS: FAMOTIDINE 20 MG TAB PO SCH ×2 (10:08→18:13)
[2019-02-20] MEDS: IRON-VITAMIN-MINERAL CAPSULE PO SCH ×2 (10:09→18:13)
[2019-02-20] MEDS: CLOPIDOGREL BISULFATE 75 MG TAB PO SCH (10:09)
[2019-02-20] MEDS: TIMOLOL MALEATE(OPTHALMIC) 1 EA BTL OP SCH ×2 (10:09→18:13)
[2019-02-20] MEDS: ASPIRIN 81 MG ENTERIC COATED PO SCH (10:09)
[2019-02-20] MEDS: AMLODIPINE BESYLATE 5 MG TAB PO SCH (10:09)
[2019-02-20] MEDS: DULOXETINE HCL 30 MG DELAYED RELEASE PO SCH ×2 (10:09→18:13)
[2019-02-20] MEDS: METOPROLOL TARTRATE 25 MG TAB PO SCH ×2 (10:09→21:43)
[2019-02-20] MEDS: ONDANSETRON HCL INJ 2MG/ML 2ML 2 MG/ML VIAL IV PRN ×2 (11:27→18:15)
--- NOTE | 2019-02-20 12:24 | NUR ---
DR MORALES WAS MADE AWARE OF LABS WHEN ON UNIT. FOCAL ON HH AND K. NO NEW ORDERS. PT ASYMPTOMATIC
--- NOTE | 2019-02-20 12:41 | NUR ---
PT GIVEN CHOICE FOR SNF SHE CHOSE [facility] THAT IS CLOSER TO HER HOME, FILED IN CHART, WAITING ON PACKET TO FAX TO FACILITY.
--- NOTE | 2019-02-20 13:41 | Consultation ---
DATE OF CONSULTATION: 02/19/2019 REASON FOR CONSULTATION: This patient has a fever. HISTORY OF PRESENT ILLNESS: This patient, who is an 83-year-old female, very pleasant, she was admitted with right leg ischemia, bilateral leg pain, peripheral vascular disease. She does have history of peripheral vascular disease with claudication. The patient started to have these symptoms for a year now. She was seen by Dr. Lexx Marlow, had the procedure done on February 06, 2019. At that time, she had abdominal aortic catheter placement with aortogram, bilateral lower extremity angiogram, and selective catheter placement of the right femoral artery, left superficial femoral artery, and atherectomy with angioplasty and stent placement to the left femoral artery, secondary thrombectomy of the left femoral artery. The patient went home the same day. She is coming now with right lower extremity pain, redness, below the knee. Creatine kinase of 10,000. There was concern if she have rhabdomyolysis. The patient was admitted. She is currently in the intensive care unit. I was asked to see her for fever. The patient who is currently lying in bed, complaining of pain in the lower extremity. She came in with right lower extremity peripheral vascular disease with ischemia, was given IV fluid, IV antibiotic. She was seen by Dr. Hernandez, seen by Dr. Marlow. She was admitted on February 15. She was seen by Renal. The patient was diagnosed with rhabdomyolysis due to ischemic leg. She has been running fever since admission. I am asked to see her. The patient is currently lying in bed comfortably. She has no complaints. Her temperature is currently 101.4 to 102.4. Fever started on February 16, but her cultures have been negative. Her urine cultures have been negative. Her white count when she first came was a 14.8, now 17.2. Her hemoglobin dropped to 6.4. Her platelet is 270. She does have elevated neutrophils of 13.2%, elevated monocyte and her sodium 140, potassium 3.6, chloride 109. Creatine kinase is slowly coming down to 4132 on the , when she first came, it was 7176. She did have a chest x-ray, which showed increased patchy opacity of the left lobe, which may represent atelectasis. She had abdominal CAT scan, which showed left inguinal hemorrhage and 3 cm hematoma in the superficial soft tissue. She was admitted on the . She was seen by Neurosurgery on . The patient on the , received 1 unit of blood. The fever started to have after that. Her blood cultures are negative. Urine culture is still pending as mentioned above. LABORATORY DATA: Reviewed. Chart reviewed. MEDICATIONS: She is currently on K-Dur, acetaminophen, Lasix, heparin, aspirin, Plavix, furosemide. She was started on vancomycin and Zosyn on the . PHYSICAL EXAMINATION: GENERAL: She is currently alert, oriented, does not seem to be in acute distress. VITAL SIGNS: Stable. HEENT: She is not icteric. NECK: Supple. CHEST: Few crackles bilateral. HEART: S1, S2. No S3, S4, or murmur. ABDOMEN: Soft. Bowel sounds present. No tenderness. EXTREMITIES: No edema. SKIN: No rash. IMPRESSION: Fever, persistent, clinically stable. Her leg seems to be better. Chest x-ray shows some infiltrate, but does not suggest pneumonia. The patient did receive blood and then she started to have fever, which could be related to it. She has also been on antibiotics since admission, which could be also related to it. I would suggest we continue antibiotic, observe the patient clinically, continue with local care, continue IV fluid, reassess in the morning. We will follow. MD RADHA Frank/TYLER /[id number]
--- NOTE | 2019-02-20 14:47 | NUR ---
FAXED CLINICALS AND PASRR TO [facility] [phone] , WAITING ON AUTH
--- NOTE | 2019-02-20 17:17 | Progress Note ---
DATE: 02/20/2019 SUBJECTIVE: Ms. Johnson is doing well today. No new complaint. She left ICU, in medical floor. REVIEW OF SYSTEMS: HEENT: Negative. PULMONARY: Negative. CARDIAC: Negative. : Negative. SKIN: No rash. LABORATORY DATA: Her cultures are negative. Her white count is coming down to 15.6, hemoglobin 7.1. Her sodium 139, potassium 3.3. PHYSICAL EXAMINATION: GENERAL: She is currently alert, oriented, not really a good historian. VITAL SIGNS: T-max 101.9. HEENT: Normocephalic. NECK: Supple. CHEST: Clear. HEART: S1 and S2. No S3, S4, or murmur. ABDOMEN: Soft. Bowel sounds present. EXTREMITIES: No edema. IMPRESSION: Fever, took place while in the hospital. Blood cultures negative. Urine culture is negative. Clinically, examination is negative. She did come with cellulitis, not resolved. Her CT scan does not reveal pneumonia. Her CT abdomen and pelvis was also did not reveal infection, but she has 3 cm hematoma. Clinically, I do not think she has infection. It is either drug related fever or may be related to transfusion. The plan is to observe off antibiotic. Clinically to make further decision about source of her fever. We will monitor her closely. Discussed with Internal Medicine. MD RADHA Frank/TYLER /[id number]
[2019-02-20] MEDS ORDERED: POTASSIUM CHLORIDE 20 MEQ TAB CR PO SCH (18:00)
--- NOTE | 2019-02-20 18:50 | NUR ---
DR ZAFAR ROUNDED, WAS MADE AWARE PT HAS REDNESS AND HEAT TO RIGHT LOWER EXTREMITY. ARTERIAL DOPPLER DONE SHOWS NEGATIVE, VENOUS DOPPLER SHOWS NEGATIVE. PT RUNNING FEVER AND C/O PAIN AND TENDERNESS TO AREA. NOTIFIED DR LANGE OF RESULTS AND PT STATUS, ORDERS RECVD FOR BLOOD AND URINE CULTURES, ALSO PAGED DR HOUGH TO UPDATE.
--- NOTE | 2019-02-20 19:01 | NUR ---
i was called for fever patient with redness in the right leg will add vanc and cefepim check blood cultures
--- NOTE | 2019-02-20 19:53 | Progress Note ---
DATE: 02/20/2019 Cardiology Progress Note SUBJECTIVE: The patient having a lot of pain in the right lower extremity below the knee today with redness and swelling. OBJECTIVE: VITAL SIGNS: Temperature 99.9, pulse 86, respiratory rate 17, blood pressure 149/67, and saturating 96% on room air. GENERAL: Elderly female, in mild distress due to right lower extremity pain. CARDIOVASCULAR: Regular rate and rhythm. No murmurs, rubs, or gallops. Right lower extremity below the knee looks very hot, red, and swollen. Pulses are 2+ Dopplerable, both dorsalis pedis and posterior tibial. No concern for muscle , very tender to palpation. LUNGS: Clear to auscultation bilaterally. ABDOMEN: Soft, nontender, and nondistended. NEUROLOGIC AND PSYCHIATRIC: Alert and oriented to person, place, and time. Normal affect. INPATIENT MEDICATIONS: Reviewed. LABORATORY DATA: Reviewed. White count today 15.6 and hemoglobin 7.1. TELEMETRY DATA: Reviewed, showed normal sinus rhythm. Chest CT yesterday showed no pneumonia. ASSESSMENT: 1. Acute limb ischemia, right lower extremity, status post peripheral angiogram and computed tomography angiography. 2. Rhabdomyolysis secondary to ischemia, now improved. 3. Hypertension. 4. Anemia of acute blood loss. 5. Left groin hematoma. 6. Recent superficial femoral artery arthrectomy and stenting of the left lower extremity. RECOMMENDATIONS: The patient had excellent arterial flow in bilateral lower extremities, however, given acute onset redness and swelling in her right lower extremity venous Dopplers. Elevate the leg. Continue aspirin and Plavix. Start anticoagulation with heparin given low hemoglobin and recent bleeding. Thank you for this consult. We will continue to follow. MD NASIR Cheney/TYLER /[id number]
[2019-02-20] MEDS: SENNOSIDES 8.6 MG TAB PO SCH (21:00)
[2019-02-20] MEDS ORDERED: SODIUM CHLORIDE 0.9% 250ML 250 ML ONE (21:13)
[2019-02-20] MEDS: CEFEPIME 1GM/NS 0.9% 50 ML 50 ML IV SCH (21:43)
[2019-02-20] MEDS: ATORVASTATIN 20 MG TAB PO SCH (21:43)
[2019-02-20] MEDS: LATANOPROST(OPTH) 2.5 ML BTL OP SCH (21:43)
[2019-02-20] MEDS: VANCOMYCIN 1GM/NS 250 ML 250 ML IV SCH (22:00)
[2019-02-21] VITALS (7 sets, daily range): BP systolic 127–150; BP diastolic 63–80
[2019-02-21 05:38] LABS: CLARITY,URINE SL CLOUDY (CLEAR); COLOR,URINE YELLOW (YELLOW); LEUKOCYTE ESTERASE ,URINE NEGATIVE (NEGATIVE); NITRITE,URINE NEGATIVE (NEGATIVE)
[2019-02-21 05:39] LABS: BILIRUBIN,URINE NEGATIVE (NEGATIVE); KETONES,URINE NEGATIVE (NEGATIVE); PROTEIN,URINE DIPSTICK 1+ (NEGATIVE); URINE UROBILINOGEN 0.2 mg/dL (0.2 - 1)
[2019-02-21 05:51] LABS: BACTERIA,URINE MANY /HPF; EPITHELIAL CELLS,URINE MODERATE /LPF; WBC,URINE (MAN) 21-50 /HPF (0-5)
--- NOTE | 2019-02-21 07:00 | NUR ---
BEDSIDE SHIFT REPORT RECEIVED FROM THE OFFICE COORDINATOR RN. PT DENIES NEEDS AT THIS TIME.
[2019-02-21 07:03] LABS: BASOPHILS % 0.2 % (0.0-1.0); EOSINOPHILS # (AUTO) 0.1 (0.0-0.4); EOSINOPHILS % 0.4 % (0.0-6.0); HEMOGLOBIN 7.7 g/dL (12.0-16.0); LYMPHOCYTES # (AUTO) 1.7 (1.0-3.2); LYMPHOCYTES % 9.6 % (18.0-39.1); MEAN CORPUSCULAR HGB CONC 32.1 g/dL (31-35); MEAN CORPUSCULAR VOLUME 87.3 fL (81-99); MONOCYTES # (AUTO) 1.3 (0.2-0.8); MONOCYTES % 7.5 % (4.4-11.3); NEUTROPHILS # (AUTO) 14.2 (2.1-6.9); NEUTROPHILS % 80.9 % (38.7-80.0); PLATELET COUNT 322 x10e3/uL (140-360); RED BLOOD COUNT 2.75 x10e6/uL (3.6-5.1); RED CELL DISTRIBUTION WIDTH 14.6 % (11.7-14.4)
[2019-02-21 07:21] LABS: ANION GAP 11.5 mmol/L (8-16); BLOOD UREA NITROGEN 6 mg/dL (7-26); BUN/CREATININE RATIO 8 (6-25); CALCIUM 8.9 mg/dL (8.4-10.2); CARBON DIOXIDE 24 mmol/L (22-29); CHLORIDE 108 mmol/L (98-107); CREATINE KINASE 2665 IU/L (29-168); CREATININE, SERUM 0.75 mg/dL (0.57-1.11); EST GLOMERULAR FILTRATION RATE > 60 ML/MIN (60-); GLUCOSE 99 mg/dL (74-118); POTASSIUM 3.5 mmol/L (3.5-5.1); SODIUM 140 mmol/L (136-145)
[2019-02-21] MEDS: FAMOTIDINE 20 MG TAB PO SCH ×2 (07:43→17:26)
[2019-02-21] MEDS: CEFEPIME 1GM/NS 0.9% 50 ML 50 ML IV SCH ×2 (07:43→21:00)
[2019-02-21] MEDS: CLOPIDOGREL BISULFATE 75 MG TAB PO SCH (08:00)
[2019-02-21] MEDS: AMLODIPINE BESYLATE 5 MG TAB PO SCH (08:00)
[2019-02-21] MEDS: IRON-VITAMIN-MINERAL CAPSULE PO SCH ×2 (08:00→17:26)
[2019-02-21] MEDS: DULOXETINE HCL 30 MG DELAYED RELEASE PO SCH ×2 (08:00→17:26)
[2019-02-21] MEDS: ASPIRIN 81 MG ENTERIC COATED PO SCH (08:00)
[2019-02-21] MEDS: METOPROLOL TARTRATE 25 MG TAB PO SCH ×2 (08:00→20:50)
[2019-02-21] MEDS: TIMOLOL MALEATE(OPTHALMIC) 1 EA BTL OP SCH ×2 (09:00→21:00)
[2019-02-21] MEDS: VANCOMYCIN 1GM/NS 250 ML 250 ML IV SCH ×2 (09:09→22:00)
--- NOTE | 2019-02-21 10:00 | NUR ---
PT REFUSED TIMOLOL OPHTHALMIC DROPS. PER THE PT, THE MED AT BEDTIME DAILY. INFORMED THE SAME TO THE PHARMACY.
--- NOTE | 2019-02-21 11:21 | NUR ---
CALLED AND SPOKE WITH [facility] INFORMED I FAXED MEDICATION UPDATES, SHE STATES SHE HAS ALREADY HAD INSURANCE REQUEST PEER TO PEER INFORMATION GAVE DR NAME AND PHONE NUMBER. SHE WILL LET ME KNOW.
[2019-02-21] MEDS: MORPHINE SULFATE 2 MG/ML SYR 1ML IV PRN ×3 (11:46→18:33)
--- NOTE | 2019-02-21 16:29 | NUR ---
Nutrition Screen Note RD Recommendation for Physician: Plan of Care: RD following, monitoring for tolerance and adequacy Nutrition reason for involvement: LOS Primary Diagnose(s): HTN, ischemia of R lower leg PMH: PVD, HTN, dyslipidemia, reflux, OA Ht: 66 in Wt: 173 lb BMI: 27.9 kg/m2 IBW: [address] Assessment: (02/21) 83 YOF admitted for R lower leg ischemia with hx of PVD. Pt discussed during am rounds, no surgical intervention at this time. Pt seen today for LOS. Pt states "I've never been a big eater", noted 50-100% meal intake and reports decreased appetite with recent increase in pain level. Pt reports UBW of 163#, no wt loss noted. Pt denies any GI distress. Pt with no questions or concerns at time of visit. Chart reviewed. Labs and meds reviewed. Will monitor and continue to follow. Current Diet: cardiac Malnutrition Evaluation (02/21/19) The patient does not meet criteria for a specified degree of malnutrition at this time. Will re-evaluate at follow-up as appropriate. Diet Education Needs Assessment: Diet education not indicated. Diet tolerance: tolerating po Nutrition Care Level: Low Signed: Lauren Perdomo RD, LD, CNSC
--- NOTE | 2019-02-21 19:00 | NUR ---
BEDSIDE SHIFT REPORT GIVEN TO THE TAPPER BIT RN. PT DENIED FURTHER NEEDS.
--- NOTE | 2019-02-21 19:15 | NUR ---
Patient visited in room during nursing rounds. Patient alert and oriented x3. Pt with some weakness especially on BLE but able to ambulate with assistance and use of walker prn. Pt on scheduled IV antibiotics. Call bergeron within reach. Will monitor closely.
--- NOTE | 2019-02-21 20:09 | Progress Note ---
DATE: 02/21/2019 Cardiology Progress Note SUBJECTIVE: No major events overnight. OBJECTIVE: VITAL SIGNS: Temperature afebrile, pulse 80, respiratory rate 16, blood pressure 160/80, and saturating 100% on nasal cannula. GENERAL: Elderly female, no acute distress. CARDIOVASCULAR: Regular rate and rhythm. No murmurs, rubs, or gallops. LUNGS: Clear to auscultation anteriorly. ABDOMEN: Soft, nontender, nondistended. NEURO AND PSYCH: Alert and oriented to person, place, and time. Normal affect. EXTREMITIES: Right lower extremity with redness below the knee and tenderness and some swelling, however, it is warm and well perfused. Pulses are intact. Dopplerable both dorsalis pedis and posterior tibial. Left groin hematoma soft. No active signs of bleeding. ASSESSMENT AND PLAN: 1. Peripheral arterial disease, status post BODY AND FENDER WORKER and stenting of left SFA. 2. Acute limb ischemia, right lower extremity, status post BODY AND FENDER WORKER of the right common femoral artery. 3. Hypertension. 4. Hyperlipidemia. 5. Diabetes. PLAN: Doing well from a vascular standpoint. Antibiotics per primary team. Pulses remain intact. Continue aspirin and Plavix. We will continue to follow closely. MD NASIR Cheney/TYLER /[id number]
[2019-02-21] MEDS: SENNOSIDES 8.6 MG TAB PO SCH (20:50)
[2019-02-21] MEDS: ATORVASTATIN 20 MG TAB PO SCH (20:50)
[2019-02-21] MEDS: ACETAMINOPHEN 325 MG TAB PO PRN (20:50)
[2019-02-21] MEDS: LATANOPROST(OPTH) 2.5 ML BTL OP SCH (21:00)
[2019-02-22] VITALS (8 sets, daily range): BP systolic 124–159; BP diastolic 50–89
[2019-02-22 05:28] LABS: BASOPHILS % 0.3 % (0.0-1.0); EOSINOPHILS # (AUTO) 0.1 (0.0-0.4); EOSINOPHILS % 0.6 % (0.0-6.0); HEMATOCRIT 23.2 % (34.2-44.1); HEMOGLOBIN 7.6 g/dL (12.0-16.0); LYMPHOCYTES # (AUTO) 1.9 (1.0-3.2); MEAN CORPUSCULAR HEMOGLOBIN 27.9 pg (28-32); MEAN CORPUSCULAR HGB CONC 32.8 g/dL (31-35); MEAN CORPUSCULAR VOLUME 85.3 fL (81-99); MONOCYTES # (AUTO) 1.5 (0.2-0.8); MONOCYTES % 10.1 % (4.4-11.3); NEUTROPHILS # (AUTO) 10.9 (2.1-6.9); NEUTROPHILS % 74.7 % (38.7-80.0); PLATELET COUNT 367 x10e3/uL (140-360); RED BLOOD COUNT 2.72 x10e6/uL (3.6-5.1); RED CELL DISTRIBUTION WIDTH 14.4 % (11.7-14.4)
[2019-02-22] MEDS: FAMOTIDINE 20 MG TAB PO SCH ×2 (06:30→16:45)
--- NOTE | 2019-02-22 07:00 | NUR ---
BEDSIDE SHIFT REPORT RECEIVED FROM THE CARDIAC REHABILITATION PROGRAM DIRECTOR RN. PT DENIES NEEDS AT THIS TIME.
[2019-02-22] MEDS: CEFEPIME 1GM/NS 0.9% 50 ML 50 ML IV SCH ×2 (08:00→20:20)
[2019-02-22] MEDS: DULOXETINE HCL 30 MG DELAYED RELEASE PO SCH ×2 (08:01→16:45)
[2019-02-22] MEDS: ASPIRIN 81 MG ENTERIC COATED PO SCH (08:01)
[2019-02-22] MEDS: IRON-VITAMIN-MINERAL CAPSULE PO SCH ×2 (08:01→16:45)
[2019-02-22] MEDS: AMLODIPINE BESYLATE 5 MG TAB PO SCH (08:02)
[2019-02-22] MEDS: METOPROLOL TARTRATE 25 MG TAB PO SCH ×2 (08:02→20:20)
[2019-02-22] MEDS: CLOPIDOGREL BISULFATE 75 MG TAB PO SCH (08:02)
--- NOTE | 2019-02-22 09:19 | NUR ---
CONTACTED RYLAND AT [facility] STILL PENDING AUTH
[2019-02-22] MEDS ORDERED: ONDANSETRON HCL 4 MG ORAL DISINTEGRATING TAB PO PRN (09:30)
[2019-02-22] MEDS ORDERED: ALPRAZOLAM 0.25 MG TAB PO PRN (09:45)
[2019-02-22] MEDS: VANCOMYCIN 1GM/NS 250 ML 250 ML IV SCH ×2 (10:00→22:30)
--- NOTE | 2019-02-22 10:00 | NUR ---
PT VOICED CONCERN ON RIGHT LEG TIGHTNESS BELOW THE KNEE AND PAIN ON THE RIGHT LEG. INFORMED THE SAME TO DR. MORALES AND DR. HOUGH.
[2019-02-22] MEDS: GABAPENTIN 100 MG CAP PO SCH ×3 (10:34→20:20)
--- NOTE | 2019-02-22 11:45 | NUR ---
CALLED MRI REGARDING STAT FOOT MRI PER DR. HOUGH.
--- NOTE | 2019-02-22 11:55 | NUR ---
PER MRI, PT STENT PLACED LESS THAN 6 WEEKS AGO. SO UNABLE TO DO MRI. INFORMED THE SAME TO DR. HOUGH. NEW ORDER FOR CT SCAN OF RT LEG PER THE
--- NOTE | 2019-02-22 12:15 | NUR ---
CALLED RADIOLOGY AND INFORMED NEW ORDER FOR CT SCAN. AFTER 1 HOUR PER RADIOLOGY.
--- NOTE | 2019-02-22 13:52 | NUR ---
CONTACTED RYLAND AT [facility], SHE STATES PEER TO PEER WAS COMPLETED WITH DR MORALES AND FOUND THAT PT IS NOT READY FOR DISCHARGE, POSSIBLE NEED FOR STENT, SEND UPDATES WHEN PT IS READY FOR DISCHARGE, NOTIFIED CM TEAM.
--- NOTE | 2019-02-22 14:01 | NUR ---
Removed torres at this time. Patient tolerated well. Removed 10ml from balloon. Tip intact. Patient d/t void in 6-8 hours
--- NOTE | 2019-02-22 14:04 | NUR ---
PT OFF UNIT FOR CT IN SAFE CONDITION.
[2019-02-22] MEDS ORDERED: SODIUM CHLORIDE 0.9% 50ML 50 ML ONE (14:31)
[2019-02-22] MEDS ORDERED: IOPAMIDOL 370 MG/ML 200 ML INFUS..BTL INJ ONE (14:32)
--- NOTE | 2019-02-22 14:40 | NUR ---
PT BACK TO UNIT AFTER CT. DENIES NEEDS AT THIS TIME
--- NOTE | 2019-02-22 15:00 | NUR ---
CALLED DR. CARRENO AND LEFT MESSAGE REGARDING TIGHTNESS AND PAIN ON RIGHT LEG. WAITING FOR CALL BACK.
[2019-02-22] MEDS: MORPHINE SULFATE 2 MG/ML SYR 1ML IV PRN (15:17)
--- NOTE | 2019-02-22 15:17 | Diagnostic Imaging Report ---
EXAM: CT right tibia/fibula with contrast INDICATION: Compartment syndrome. Leg pain. Hypertension. Cellulitis COMPARISON: None. TECHNIQUE: Right tibia/fibula was scanned utilizing a multidetector helical after administration of IV contrast. 100 cc Isovue-370 contrast material was administered. Coronal and sagittal reformations were obtained. Routine protocol was performed. IV CONTRAST: 100 cc Isovue-370 ORAL CONTRAST: Water COMPLICATIONS: None RADIATION DOSE: Total DLP: 261.62 mGy*cm Estimated effective dose: (DLP x 0.015 x size factor) mSv CTDIvol has been reviewed. It is below the limits set by the Radiation Protocol Committee (RPC). Dose modulation, iterative reconstruction, and/or weight based adjustment of the mA/kV was utilized to reduce the radiation dose to as low as reasonably achievable. FINDINGS: No acute fracture, subluxation or evidence of avascular necrosis. Scattered vascular calcification. Scattered degenerative change. Chondrocalcinosis in the knee. Correlate for CPPD. Skin thickening and soft tissue edema diffusely about the lower leg worrisome for cellulitis. No focal fluid collection is seen. Decreased density and apparent edema predominantly in the anterior lateral lower leg musculature worrisome for myositis or possibly compartment syndrome in the appropriate clinical context. This is best seen on series 3 image 85. The intramuscular fat planes are obscured in this region. Small knee joint effusion. Impression: Decreased density and apparent edema predominantly in the anterior lateral lower leg musculature worrisome for myositis or possibly compartment syndrome in the appropriate clinical context. The intramuscular fat planes are obscured in this region. MRI may provide further information if clinically indicated. Skin thickening and soft tissue edema diffusely about the lower leg worrisome for cellulitis. No focal fluid collection is seen. Signed by: Dr. Eric Hodges M.D. on 02/22/2019 3:14 PM
--- NOTE | 2019-02-22 16:30 | NUR ---
DR. COLINDRES AT BEDSIDE
[2019-02-22] MEDS: CLINDAMYCIN PHOS 900MG/ 50ML 50 ML IV SCH (17:00)
--- NOTE | 2019-02-22 17:04 | Progress Note ---
DATE: 02/22/2019 SUBJECTIVE: Ms. Johnson continued to complain of pain, redness in her leg. Upon examination today, the patient's temperature is coming down, however, the redness, pain, and tenderness is a little worse today. LABORATORY DATA: Reviewed. Her white count is 14.5, her hemoglobin is 7. Her sodium 140, potassium 3.5, creatinine 0.75. PHYSICAL EXAMINATION: GENERAL: She is currently alert, oriented, does not seem in acute distress. VITAL SIGNS: Temperature 98.4, heart rate 71, respirations 18, and blood pressure 124/50. HEENT: She is not icteric. NECK: Supple. CHEST: Clear. COR: S1, S2. No murmur. ABDOMEN: Soft. EXTREMITIES: The leg is quite tender and red as mentioned above. IMPRESSION: 1. Concerned about cellulitis, concerned about compartment syndrome. We will get CT of the leg. We could not do an MRI. We will consult surgery. I am going to add clindamycin to her treatment and we will follow closely. Discussed with Internal Medicine. Discussed with Surgery. 2. Peripheral vascular disease, status post procedure. 3. Anemia of chronic disease, multifactorial, concern acute gastrointestinal bleed. We will follow. MD RADHA Frank/TYLER /[id number]
--- NOTE | 2019-02-22 17:35 | NUR ---
NEW ORDER FOR BLOOD TRANSFUSION [address] COLINDRES FOR THE PROCEDURE ON 02/23/19. GIVE 1 UNIT OF BLOOD TODAY AND HOLD 1 UNIT FOR TOMORROW FOR THE PROCEDURE PER THE DRSarbjit INFORMED THE SAME TO THE LAB.
[2019-02-22] MEDS ORDERED: SODIUM CHLORIDE 0.9% 250ML 250 ML IV ONE ×2 (17:45)
--- NOTE | 2019-02-22 18:00 | NUR ---
DR. Candie ZAFAR AT BEDSIDE.
--- NOTE | 2019-02-22 19:00 | NUR ---
PT VOIDED TWO TIMES AT 1600 AND 1830. PT DENIES NEEDS AT THIS TIME.
--- NOTE | 2019-02-22 19:05 | NUR ---
BEDSIDE SHIFT REPORT GIVEN TO THE ACADEMIC INTERVENTIONIST RN. PT DENIED FURTHER NEEDS.
--- NOTE | 2019-02-22 19:15 | NUR ---
Patient visited in room during nursing rounds. Patient alert and oriented x3. Pt with some weakness especially on BLE but able to ambulate with assistance and use of walker prn. Pt on scheduled IV antibiotics. Pt aware that she will be receiving 1 unit PRBC tonight per Dr. Rodriguez order and that pt is scheduled for procedure (Fasciotomy) tomorrow. Call bergeron within reach. Will monitor closely.
[2019-02-22] MEDS: ACETAMINOPHEN 325 MG TAB PO PRN (20:20)
[2019-02-22] MEDS: ATORVASTATIN 20 MG TAB PO SCH (20:20)
[2019-02-22] MEDS: TIMOLOL MALEATE(OPTHALMIC) 1 EA BTL OP SCH (20:20)
[2019-02-22] MEDS: SENNOSIDES 8.6 MG TAB PO SCH (21:00)
[2019-02-22] MEDS: LATANOPROST(OPTH) 2.5 ML BTL OP SCH (21:00)
[2019-02-22] MEDS ORDERED: SODIUM CHLORIDE 0.9% 250ML 250 ML ONE (22:25)
--- NOTE | 2019-02-22 22:30 | NUR ---
Temp = 100.5 F (previously 101 F). Charge Nurse (Trisha) suggested not to give 1 unit PRBC at this time and wait until fever dissipates. IV Vancomycin currently infusing via peripheral IV.
--- NOTE | 2019-02-22 23:35 | Consultation ---
DATE OF CONSULTATION: 02/22/2019 CHIEF COMPLAINT: Right leg pain and foot numbness. HISTORY OF PRESENT ILLNESS: This patient is an 83-year-old female with history of peripheral vascular disease and claudication, who underwent an angiogram of the lower extremity with stent placement of the left femoral artery. The patient postoperatively developed the right lower leg pain with numbness in the foot. Diagnosis of rhabdomyolysis was made. She was taken for angiogram and angioplasty and readmitted for treatment of severe rhabdomyolysis. The patient continued to complain of pain in the right lower extremity with weakness and numbness in the right foot. She denies fever or chills. PAST MEDICAL HISTORY: As mentioned positive for hypertension, hyperlipidemia, peripheral vascular disease, and osteoarthritis. PAST SURGICAL HISTORY: Positive for cholecystectomy and angioplasty with stent placement recently. She has allergic reaction to penicillin and prednisone. SOCIAL HABITS: No history of smoking or alcohol use. REVIEW OF SYSTEMS: No chest pain or shortness of breath. PHYSICAL EXAMINATION: VITAL SIGNS: Stable. She has a low-grade temperature of 99.7. GENERAL: The patient is awake and alert, in moderate discomfort. HEENT: Sclerae anicteric. NECK: Supple. LUNGS: Clear. HEART: Regular rate and rhythm. ABDOMEN: Soft. EXTREMITIES: Revealed an erythematous, edematous right lower extremity [id number] with cool foot on the right compared to the left. Pulses found by Doppler bilaterally. There is decreased motor and sensory function on the right compared to the left. Tenderness to palpations on the right anterior tibial compartment. LABORATORY DATA: White cell count is 14 and hemoglobin is 7.6. Creatinine is 0.5. CT show edema in the anterolateral lower leg musculature concerning for myositis and possible compartment syndrome. Evidence of cellulitis in the lower extremity. ASSESSMENT AND PLAN: Peripheral vascular disease with history of rhabdomyolysis, postangiogram in the right lower extremity. There is definite possibility of myositis with compartment syndrome in the right lower extremity, anterolateral compartment. Plantar fasciotomy of the anterior lateral compartment of the right lower extremity under anesthesia. Transfuse 1 unit of packed cells in preparation for a perioperative bleeding. Jose Manuel Rodriguez MD DNL/MODKavin /[id number]
[2019-02-23] VITALS (8 sets, daily range): BP systolic 153–185; BP diastolic 70–98
--- NOTE | 2019-02-23 00:20 | NUR ---
Patient now afebrile at 99.5 F.
--- NOTE | 2019-02-23 00:40 | NUR ---
Pt started on 1 unit PRBC transfusion per MD order. Cleocin antibiotic 0000 dose was cancelled due to this transfusion. Will give 0600 Cleocin dose.
--- NOTE | 2019-02-23 00:40 | Progress Note ---
DATE: 02/22/2019 Cardiology Progress Note SUBJECTIVE: The patient is still complaining of severe pain in right lower extremity. OBJECTIVE: VITAL SIGNS: Temperature 101, pulse 88, respiratory rate 22, blood pressure 150/89, and saturating 96% on room air. GENERAL: Elderly female, in mild distress due to pain in the right lower extremity. CARDIOVASCULAR: Regular rate and rhythm. No murmurs, rubs, or gallops. Right lower extremity examined again. Cellulitis looking worse with some early signs of desquamation. There are signs of blister formation. I performed vascular exam with Doppler ultrasound and the patient has excellent pulses in both dorsalis pedis and posterior tibial arteries. LUNGS: Clear to auscultation bilaterally. ABDOMEN: Soft, nontender, nondistended. NEURO AND PSYCH: Alert and oriented to person, place, and time. Normal affect. INPATIENT MEDICATIONS: Reviewed. LABORATORY DATA: Reviewed. Notable for white count of 14.5, hemoglobin 7.6, which is stable; platelet count is 367. CK has been decreasing since admission, continues to decrease, now 2600 down from initial CK of over 10,000. Blood cultures show no growth so far. IMAGING DATA: Reviewed. CT scan of the right lower extremity shows increased density and edema in the anterior muscle compartment concerning for myositis, possible compartment syndrome, and skin thickening and soft tissue edema worrisome for cellulitis, multiple fluid collections seen. ASSESSMENT: 1. Acute limb ischemia, right lower extremity, status post BLOCKER METAL BASE and intervention of the right common femoral artery. 2. Peripheral arterial disease, status post BLOCKER METAL BASE and stenting of the left SFA several weeks ago. 3. Hypertension. 4. Hyperlipidemia. 5. Diabetes. 6. Right lower extremity cellulitis and myositis, concerning for compartment syndrome. PLAN: She is doing well from a vascular standpoint. Her bilateral lower extremity pulses are intact and dopplerable. No evidence of DVT by ultrasound in the right lower extremity given the swelling. Antibiotics for right lower extremity cellulitis per primary team. Surgery has been consulted for concerns for compartment syndrome and they have planned on doing fasciotomy tomorrow. Continue aspirin and Plavix. We will continue to follow closely. MD MOHINDER CheneyP/MODL /[id number]
--- NOTE | 2019-02-23 03:40 | NUR ---
Blood transfusion finished. Pt tolerated blood transfusion (1 unit PRBC) well.
[2019-02-23] MEDS: FAMOTIDINE 20 MG TAB PO SCH ×2 (04:33→16:30)
[2019-02-23 05:30] LABS: BASOPHILS # (AUTO) 0.1 (0.0-0.1); BASOPHILS % 0.4 % (0.0-1.0); EOSINOPHILS # (AUTO) 0.1 (0.0-0.4); EOSINOPHILS % 0.8 % (0.0-6.0); HEMATOCRIT 29.5 % (34.2-44.1); HEMOGLOBIN 9.6 g/dL (12.0-16.0); LYMPHOCYTES # (AUTO) 1.4 (1.0-3.2); LYMPHOCYTES % 10.1 % (18.0-39.1); MEAN CORPUSCULAR HEMOGLOBIN 27.8 pg (28-32); MEAN CORPUSCULAR HGB CONC 32.5 g/dL (31-35); MEAN CORPUSCULAR VOLUME 85.5 fL (81-99); MONOCYTES # (AUTO) 1.4 (0.2-0.8); NEUTROPHILS # (AUTO) 10.7 (2.1-6.9); NEUTROPHILS % 77.5 % (38.7-80.0); PLATELET COUNT 330 x10e3/uL (140-360); RED BLOOD COUNT 3.45 x10e6/uL (3.6-5.1); RED CELL DISTRIBUTION WIDTH 14.6 % (11.7-14.4)
[2019-02-23 05:52] LABS: ANION GAP 11.9 mmol/L (8-16); BLOOD UREA NITROGEN < 5 mg/dL (7-26); CARBON DIOXIDE 26 mmol/L (22-29); CHLORIDE 106 mmol/L (98-107); EST GLOMERULAR FILTRATION RATE > 60 ML/MIN (60-); GLUCOSE 105 mg/dL (74-118); SODIUM 141 mmol/L (136-145)
[2019-02-23 05:55] LABS: BUN/CREATININE RATIO 7 (6-25)
[2019-02-23 05:56] LABS: POTASSIUM 2.9 mmol/L (3.5-5.1)
--- NOTE | 2019-02-23 06:17 | NUR ---
Called and informed Dr. Bell patient's potassium level this AM is 2.9. MD aware and ordered 1/2NS with 20meqKCL at 100ml/hr and 40meqKCL run (to be infused slowly).
[2019-02-23] MEDS ORDERED: POTASSIUM CHLORIDE 10MEQ/100ML 100 ML IV ONE (06:30)
[2019-02-23] MEDS: SOD CHL 0.45%/POT CHL 20MEQ 1,000 ML IV SCH ×2 (06:45→16:30)
[2019-02-23] MEDS ORDERED: POTASSIUM CHLORIDE 20MEQ/100ML 200 ML IV ONE (06:45)
[2019-02-23] MEDS: CLINDAMYCIN PHOS 900MG/ 50ML 50 ML IV SCH ×6 (06:45→23:01)
--- NOTE | 2019-02-23 07:00 | NUR ---
BEDSIDE SHIFT REPORT RECEIVED FROM THE KIER HAND RN. PT IS ON NPO. PT DENIES NEEDS AT THIS TIME
--- NOTE | 2019-02-23 08:00 | NUR ---
PAGED DR. COLINDRES REGARDING MEDS. PT IS HAVING PROCEDURE TODAY. ADMINISTER ONLY BP MEDS AND HOLD OTHER MEDS, ASPIRIN AND PLAVIX PER THE
[2019-02-23] MEDS: METOPROLOL TARTRATE 25 MG TAB PO SCH ×2 (08:12→22:00)
[2019-02-23] MEDS: AMLODIPINE BESYLATE 5 MG TAB PO SCH (08:12)
[2019-02-23] MEDS: DULOXETINE HCL 30 MG DELAYED RELEASE PO SCH ×2 (09:00→17:00)
[2019-02-23] MEDS: IRON-VITAMIN-MINERAL CAPSULE PO SCH ×2 (09:00→17:00)
[2019-02-23] MEDS: ASPIRIN 81 MG ENTERIC COATED PO SCH (09:00)
[2019-02-23] MEDS: CLOPIDOGREL BISULFATE 75 MG TAB PO SCH (09:00)
--- NOTE | 2019-02-23 09:00 | NUR ---
PT C/O BURNING ON IV WHILE ADMINISTERING KCL. REDUCED RATE TO 20 ML/HR PER DR. MORALES.
--- NOTE | 2019-02-23 09:35 | NUR ---
Pt unavailable at this time. I will follow up as able. YVON [facility]lain [facility]ual [facility] Department O: [phone] Pager: [phone] ([phone] number calling from)
--- NOTE | 2019-02-23 10:00 | NUR ---
DR. MORALES AT BEDSIDE.
--- NOTE | 2019-02-23 11:40 | NUR ---
PAGED DR. MORALES REGARDING PAIN MED. RENEW MORPHINE SULFATE FOR [address] MORALES.
[2019-02-23] MEDS: MORPHINE SULFATE INJ 4 MG/ML INJ 1ML IV PRN ×3 (11:55→22:00)
[2019-02-23] MEDS ORDERED: MORPHINE SULFATE 2 MG/ML SYR 1ML IV PRN (12:00)
[2019-02-23] MEDS ORDERED: ONDANSETRON HCL INJ 2MG/ML 2ML 2 MG/ML VIAL ONE (12:31)
[2019-02-23] MEDS ORDERED: LIDOCAINE HCL 2% LOCAL INJ 5 ML SDV VIAL INJ ONE (12:31)
[2019-02-23] MEDS ORDERED: PROPOFOL IV EMULSION 10 MG/ML 20 ML VIAL ONE (12:31)
[2019-02-23] MEDS ORDERED: SEVOFLURANE INHAL SOLN 250 ML PEN BTL ONE (12:31)
--- NOTE | 2019-02-23 13:15 | NUR ---
PER DR. COLINDRES PROCEDURE AT 1300. CALLED OR AND RECONFIRMED THE TIMING. NEW SCHEDULE 1430 PER OR NURSE.
--- NOTE | 2019-02-23 14:00 | NUR ---
PEDAL PULSE CHECKED WITH DOPPLER. WEAK PEDAL PULSE PRESENT.
--- NOTE | 2019-02-23 15:10 | NUR ---
IV KCL 200 ML COMPLETED. ABX STARTED.
[2019-02-23] MEDS: CEFEPIME 1GM/NS 0.9% 50 ML 50 ML IV SCH (15:15)
[2019-02-23] MEDS ORDERED: FENTANYL CITRATE/PF 100MCG/2 ML INJ ONE (15:26)
--- NOTE | 2019-02-23 15:30 | NUR ---
PT VOICED CONCERN ON DELAY ON SURGERY. PAGED OR . 1800 THE NEW SCHEDULE PER OR. INFORMED THE PT CONCERN TO CHARGE NURSE.
[2019-02-23] MEDS: VANCOMYCIN 1GM/NS 250 ML 250 ML IV SCH (15:45)
--- NOTE | 2019-02-23 17:45 | NUR ---
CLINDAMYCIN DUE AT 1200, Q6 HRS WAS ON HOLD DUE TO KCL IV RUNNING. STARTED CLINDAMYCIN FOR 1800. INFORMED THE SAME TO DR HOUGH AND PHARMACY. RODRIGO PER DR. HOUGH.
--- NOTE | 2019-02-23 18:00 | NUR ---
PT OFF UNIT FOR PROCEDURE IN SAFE CONDITION. PT DAUGHTER AT BEDSIDE.
--- NOTE | 2019-02-23 19:00 | NUR ---
SHIFT REPORT GIVEN TO THE COMMERCIAL LITIGATION ATTORNEY RN. PT AT OR FOR PROCEDURE.
--- NOTE | 2019-02-23 20:32 | Progress Note ---
DATE: 02/23/2019 Cardiology Progress Note SUBJECTIVE: No major events overnight. OBJECTIVE: VITAL SIGNS: Temperature afebrile, pulse 82, respiratory rate 20, blood pressure 168/81, and saturating 98% on room air. GENERAL: Elderly female, no acute distress. CARDIOVASCULAR: Regular rate and rhythm. No murmurs, rubs, or gallops. LUNGS: Clear to auscultate bilaterally. ABDOMEN: Soft, nontender. NEURO AND PSYCH: Alert and oriented to person, place, and time. Normal affect. EXTREMITIES: Lower extremity exam, the patient has dopplerable pulses in bilateral lower extremities. Severe redness and swelling of the right lower extremity [id number]. There is some purulence now present. INPATIENT MEDICATIONS: Reviewed. LABORATORY DATA: Reviewed. White count 14, hemoglobin 7.6 . Potassium 2.9 pending repletion. Renal function is normal. TELEMETRY DATA: Reviewed shows normal sinus rhythm. ASSESSMENT AND PLAN: 1. Acute limb ischemia, right lower extremity, status post WOOD HEEL BACK LINER and intervention of right common femoral artery. 2. Peripheral arterial disease, status post WOOD HEEL BACK LINER and stenting of left SFA several weeks ago. 3. Hypertension. 4. Hyperlipidemia. 5. Diabetes. 6. Acute right lower extremity cellulitis and myositis concerning for compartment syndrome. PLAN: She had dopplerable pulses in bilateral lower extremities and doing okay from vascular standpoint. Continue aspirin and Plavix. The patient is to undergo fasciotomy later this afternoon performed by Surgery with washout and debridement for her severe cellulitis and myositis per imaging. Thank you for this consult. We will continue to follow. MD NASIR Cheney/TYLER /[id number]
--- NOTE | 2019-02-23 20:45 | NUR ---
RECEIVED FROM PACU. PATIENT IS ALERT AND ORIENTED. WITH INTACT DRESSING TO LEFT LOWER LEG. DR. COLINDRES STATES ORAL MEDS DUE IN AM WILL BE GIVEN TOMORROW AM.
[2019-02-23] MEDS: TIMOLOL MALEATE(OPTHALMIC) 1 EA BTL OP SCH (21:00)
[2019-02-23] MEDS: LATANOPROST(OPTH) 2.5 ML BTL OP SCH (21:00)
[2019-02-23] MEDS: ATORVASTATIN 20 MG TAB PO SCH (21:59)
[2019-02-23] MEDS: GABAPENTIN 100 MG CAP PO SCH (22:00)
[2019-02-23] MEDS ORDERED: CEFEPIME 1GM/NS 0.9% 50 ML 50 ML IV SCH (22:00)
[2019-02-23] MEDS: SENNOSIDES 8.6 MG TAB PO SCH (22:00)
[2019-02-24] VITALS (7 sets, daily range): BP systolic 146–161; BP diastolic 69–83
[2019-02-24] MEDS: ACETAMINOPHEN 325 MG TAB PO PRN (00:18)
[2019-02-24] MEDS: CEFEPIME 1GM/NS 0.9% 50 ML 50 ML IV SCH ×2 (02:09→13:16)
--- NOTE | 2019-02-24 02:23 | Operative Report ---
DATE OF PROCEDURE: 02/23/2019 SURGEON: Jose Manuel Rodriguez MD PREOPERATIVE DIAGNOSIS: Right lower extremity fasciitis and myositis. POSTOPERATIVE DIAGNOSIS: Right lower extremity fasciitis and myositis. OPERATIVE PROCEDURE: Right leg fasciotomy of the anterior compartment. FOUR H AGENT: None. ANESTHESIA: General endotracheal, Dr. Rodriguez. INDICATION: An 83-year-old female with history of surgical intervention in the right lower extremity for angioplasty, who develop rhabdomyolysis and there is evidence of myositis and fasciitis on CT scan of the lower leg. The patient consented for fasciotomy and anesthesia. Attendant risks discussed. DESCRIPTION OF PROCEDURE: The patient was brought to OR intubated. The right lower extremity was prepped with Betadine and draped in sterile fashion. The area of maximal edema and fluctuance is on the anterior aspect of the right lower extremity and a limited vertical incision is made on the anterior aspect of the anterior compartment. Through the fascia, purulent material was swabbed for culture and sensitivity. We then proceeded to extend the fasciotomy distally and proximally to expose all underlying muscle some necrotic near the area of purulence. More proximally and distally, the muscles seem to be pale, but there is questionable viability. No purulence distally. The fasciotomy was carried down within 5 cm from the ankle and approximately 5 cm from the patella. The wound was then irrigated with Betadine solutions. The fascia is from the overlying subcutaneous tissue to ensure complete opening of fascia plane on both side of the fasciotomy. Hemostasis achieved with cauterization. The wound was then packed with iodoform gauze and dressing with 4 x 4 and Kerlix roll. The patient tolerated the procedure well, was extubated and transported to recovery room. BLOOD LOSS: 10 mL. Jose Manuel Rodriguez MD DNL/MODL /[id number]
[2019-02-24] MEDS: SOD CHL 0.45%/POT CHL 20MEQ 1,000 ML IV SCH ×2 (02:30→11:22)
[2019-02-24] MEDS: VANCOMYCIN 1GM/NS 250 ML 250 ML IV SCH ×2 (03:56→17:30)
[2019-02-24] MEDS: CLINDAMYCIN PHOS 900MG/ 50ML 50 ML IV SCH ×2 (05:19→11:31)
[2019-02-24 05:30] LABS: ANION GAP 13.3 mmol/L (8-16); BLOOD UREA NITROGEN < 5 mg/dL (7-26); CALCIUM 8.6 mg/dL (8.4-10.2); CARBON DIOXIDE 24 mmol/L (22-29); CHLORIDE 106 mmol/L (98-107); CREATININE, SERUM 0.67 mg/dL (0.57-1.11); EST GLOMERULAR FILTRATION RATE > 60 ML/MIN (60-); GLUCOSE 104 mg/dL (74-118); MAGNESIUM 1.4 MG/DL (1.3-2.1); PHOSPHORUS 3.1 MG/DL (2.3-4.7); POTASSIUM 3.3 mmol/L (3.5-5.1); SODIUM 140 mmol/L (136-145)
[2019-02-24 05:42] LABS: BUN/CREATININE RATIO 7 (6-25)
--- NOTE | 2019-02-24 07:00 | NUR ---
BEDSIDE SHIFT REPORT RECEIVED FROM THE HYDRO ELECTRIC STATION OPERATOR RN. EDUCATED PT ABOUT FALL PRECAUTIONS. CALL LIGHT WITH IN EASY REACH. INSTRUCTED PT TO USE CALL LIGHT FOR ANY NEEDS. PT VERBALIZED UNDERSTANDING. PT DENIES NEEDS AT THIS TIME.
[2019-02-24] MEDS: DULOXETINE HCL 30 MG DELAYED RELEASE PO SCH ×2 (08:05→17:05)
[2019-02-24] MEDS: ASPIRIN 81 MG ENTERIC COATED PO SCH (08:05)
[2019-02-24] MEDS: FAMOTIDINE 20 MG TAB PO SCH ×2 (08:05→17:05)
[2019-02-24] MEDS: CLOPIDOGREL BISULFATE 75 MG TAB PO SCH (08:06)
[2019-02-24] MEDS: GABAPENTIN 100 MG CAP PO SCH ×4 (08:07→22:00)
[2019-02-24] MEDS: METOPROLOL TARTRATE 25 MG TAB PO SCH ×2 (08:50→22:00)
[2019-02-24] MEDS: AMLODIPINE BESYLATE 5 MG TAB PO SCH (08:50)
[2019-02-24] MEDS: IRON-VITAMIN-MINERAL CAPSULE PO SCH ×2 (08:50→17:05)
[2019-02-24] MEDS: MORPHINE SULFATE INJ 4 MG/ML INJ 1ML IV PRN ×3 (08:51→17:52)
--- NOTE | 2019-02-24 12:30 | NUR ---
DR. RICHARDSON AT BEDSIDE. ASSESSED HEMATOMA SITE AND LEG. CHECK PEDAL PULSE Q6 HRS WITH DOPPLER PER DR. RICHARDSON. INFORMED PT K LEVEL.
--- NOTE | 2019-02-24 15:30 | NUR ---
RIGHT LEG PEDAL PULSE CHECKED WITH DOPPLER. PULSE PRESENT
--- NOTE | 2019-02-24 15:46 | Progress Note ---
DATE: 02/24/2019 Cardiology Progress Note SUBJECTIVE: The patient denies chest pain or shortness of breath. Her right leg hurts post surgery. OBJECTIVE: VITAL SIGNS: Temperature 99.4 degrees, pulse 74, respiratory rate is 18, blood pressure 140/69, and oxygen saturation 100% on room air. GENERAL: Awake, alert, in no acute distress. LUNGS: Clear to auscultation bilaterally. No wheezes or crackles. CARDIOVASCULAR: Normal rate, regular rhythm. No murmur. Normal S1, S2. ABDOMEN: Soft, nontender. EXTREMITIES: Right lower extremity with surgical dressing in place. CARDIAC MEDICATIONS: Amlodipine 5 mg p.o. daily, metoprolol tartrate 25 mg p.o. q.12 hours, Plavix 75 mg p.o. daily, aspirin 81 mg p.o. daily, and atorvastatin 20 mg p.o. at bedtime. LABORATORY DATA: Sodium 140, potassium 3.3, chloride 106, CO2 of 24, BUN less than 5, and creatinine 0.67. TELEMETRY: Normal sinus rhythm. IMPRESSION: 1. Acute limb ischemia of the right lower extremity, status post percutaneous transluminal angioplasty and intervention of the right common femoral artery. 2. Peripheral artery disease, status post percutaneous transluminal angioplasty and stent in the left superficial femoral artery. 3. Hypertension. 4. Hyperlipidemia. 5. Diabetes mellitus. 6. Right lower extremity cellulitis and myositis concerning for compartment syndrome, now status post fasciotomy. RECOMMENDATIONS: Q.6 vascular checks. Continue aspirin and Plavix. Management of right lower extremity fasciotomy per General Surgery. Continue current cardiac medications. Antibiotics per Infectious Disease. Thank you for this consult. We will continue to follow. Nisreen Gardner MD ABS/MODL /[id number]
--- NOTE | 2019-02-24 16:30 | NUR ---
PAGED LAB REGARDING VANC TROUGH LEVEL. NO TROUGH LEVEL YET PER THE LAB.
--- NOTE | 2019-02-24 17:00 | NUR ---
PAGED LAB REGARDING VANC TROUGH LEVEL. NO TROUGH LEVEL YET PER THE LAB.
--- NOTE | 2019-02-24 17:15 | NUR ---
DR. COLINDRES AT BEDSIDE. DRESSING CHANGE COMPLETED BY THE
--- NOTE | 2019-02-24 17:27 | NUR ---
PAGED LAB REGARDING VANC TROUGH LEVEL. NO TROUGH LEVEL YET PER THE LAB.
--- NOTE | 2019-02-24 19:00 | NUR ---
PER DR. RICHARDSON FINISH THE CURRENT KCL BAG AND STOP THE KCL THROUGH IV. NO MORE EXTRA BAGS. INFORMED THE SAME TO COMMERCIAL AIRPLANE PILOT RN.
--- NOTE | 2019-02-24 19:10 | NUR ---
BEDSIDE SHIFT REPORT GIVEN TO THE SKILLED NURSING FACILITY COUNSELOR RN. FAMILY AT BEDSIDE. PT DENIED FURTHER NEEDS.
--- NOTE | 2019-02-24 19:30 | NUR ---
Pt visited in room during nursing rounds. Patient alert and oriented x3. Ambulates with assistance prn. Uses bedside commode prn. S/P Fasciotomy on right leg and surgical site covered with wet-to-dry gauze, kerlix and frida bandage. Pedal pulses good on both legs. Right leg edematous. On scheduled IV antibiotics. Call bergeron within reach.
[2019-02-24] MEDS: TIMOLOL MALEATE(OPTHALMIC) 1 EA BTL OP SCH (21:00)
[2019-02-24] MEDS: LATANOPROST(OPTH) 2.5 ML BTL OP SCH (21:00)
--- NOTE | 2019-02-24 21:00 | NUR ---
Neurovascular check performed. Pedal pulses present on BLE. Doppler US used on right foot.
[2019-02-24] MEDS: ATORVASTATIN 20 MG TAB PO SCH (22:00)
[2019-02-24] MEDS: SENNOSIDES 8.6 MG TAB PO SCH (22:00)
[2019-02-24] MEDS: HYDROCODONE/APAP 5MG-325MG TAB PO PRN (22:14)
[2019-02-25] VITALS (8 sets, daily range): BP systolic 149–177; BP diastolic 71–80
[2019-02-25] MEDS: CEFEPIME 1GM/NS 0.9% 50 ML 50 ML IV SCH ×2 (02:00→13:04)
[2019-02-25] MEDS ORDERED: SODIUM CHLORIDE 0.9% 250ML 250 ML ONE (02:12)
--- NOTE | 2019-02-25 03:00 | NUR ---
Neurovascular check performed. Pedal pulses present on BLE. Doppler US used on right foot.
[2019-02-25] MEDS: VANCOMYCIN 1GM/NS 250 ML 250 ML IV SCH ×2 (03:16→15:25)
[2019-02-25] MEDS: MORPHINE SULFATE INJ 4 MG/ML INJ 1ML IV PRN (03:23)
--- NOTE | 2019-02-25 07:14 | NUR ---
Received patient lying in bed. Respiration even and unlabored without SOB. Call light in reach.
[2019-02-25] MEDS: FAMOTIDINE 20 MG TAB PO SCH ×2 (08:31→15:25)
[2019-02-25] MEDS: IRON-VITAMIN-MINERAL CAPSULE PO SCH ×2 (08:31→15:25)
[2019-02-25] MEDS: DULOXETINE HCL 30 MG DELAYED RELEASE PO SCH ×2 (08:31→15:25)
[2019-02-25] MEDS: METOPROLOL TARTRATE 25 MG TAB PO SCH ×2 (08:31→20:35)
[2019-02-25] MEDS: ASPIRIN 81 MG ENTERIC COATED PO SCH (08:31)
[2019-02-25] MEDS: GABAPENTIN 100 MG CAP PO SCH ×3 (08:32→20:35)
[2019-02-25] MEDS: CLOPIDOGREL BISULFATE 75 MG TAB PO SCH (08:32)
[2019-02-25] MEDS: AMLODIPINE BESYLATE 5 MG TAB PO SCH (08:32)
[2019-02-25] MEDS: HYDROCODONE/APAP 5MG-325MG TAB PO PRN ×2 (08:48→17:19)
--- NOTE | 2019-02-25 09:00 | NUR ---
Posterior Tibial pulse noted using Doppler at this time.
--- NOTE | 2019-02-25 15:00 | NUR ---
Patient refused BMP blood draw. Hebre in lab is unable to draw blood.
--- NOTE | 2019-02-25 16:36 | Progress Note ---
DATE: 02/25/2019 Cardiology Progress Note SUBJECTIVE: The patient denies chest pain or shortness of breath. She says her right leg continues to hurt, but is feeling better. OBJECTIVE: VITAL SIGNS: Temperature 97.3 degrees, pulse 69, respiratory rate 20, blood pressure 165/72, oxygen saturation 99% on room air. GENERAL: Awake and alert, in no acute distress. LUNGS: Clear to auscultation bilaterally. No wheezes or crackles. CARDIOVASCULAR: Normal rate, regular rhythm. No murmur. Normal S1, S2. ABDOMEN: Soft, nontender. EXTREMITIES: Right lower extremity with surgical dressing in place. 1+ pitting edema bilaterally. CARDIAC MEDICATIONS: Amlodipine 5 mg p.o. daily, Plavix 75 mg p.o. daily, metoprolol tartrate 25 mg p.o. q.12 hours, aspirin 81 mg p.o. daily, atorvastatin 10 mg p.o. at bedtime. LABORATORY DATA: None today. Telemetry, normal sinus rhythm. IMPRESSION: 1. Acute limb ischemia of the right lower extremity, status post percutaneous transluminal angioplasty intervention of the right common femoral artery. 2. Percutaneous transluminal angioplasty and stent in the left superficial femoral artery. 3. Hypertension, hyperlipidemia, diabetes mellitus, and right lower extremity cellulitis and myositis concerning for compartment syndrome, now status post fasciotomy. RECOMMENDATIONS: Decrease to q.12 hours of vascular checks. Continue aspirin and Plavix. Management of right lower extremity fasciotomy per General Surgery. Continue current cardiac medications. Antibiotics per Infectious Disease. Thank you for this consult. We will continue to follow. Nisreen Gardner MD ABS/MODL /[id number]
--- NOTE | 2019-02-25 19:00 | NUR ---
Report given to overnight caregiver. Patient awake, alert .Respiration even and unlabored without SOB. Call light in reach.
--- NOTE | 2019-02-25 19:15 | NUR ---
Patient received sitting up in bed. AAO x 3. Patient had no complaints of pain. Respirations even and non-labored. Fall precautions implemented. Patient instructed to call for assistance when needed. Call light within reach.
[2019-02-25] MEDS: CLINDAMYCIN PHOS 900MG/ 50ML 50 ML IV SCH (20:00)
[2019-02-25] MEDS: ATORVASTATIN 20 MG TAB PO SCH (20:35)
[2019-02-25] MEDS: SENNOSIDES 8.6 MG TAB PO SCH (20:35)
[2019-02-25] MEDS: TIMOLOL MALEATE(OPTHALMIC) 1 EA BTL OP SCH (21:00)
[2019-02-25] MEDS: LATANOPROST(OPTH) 2.5 ML BTL OP SCH (21:00)
[2019-02-26] VITALS (8 sets, daily range): BP systolic 150–184; BP diastolic 70–83
[2019-02-26] MEDS: HYDROCODONE/APAP 5MG-325MG TAB PO PRN ×4 (01:04→23:08)
[2019-02-26] MEDS: CEFEPIME 1GM/NS 0.9% 50 ML 50 ML IV SCH ×2 (02:00→13:34)
--- NOTE | 2019-02-26 03:00 | NUR ---
Pedal pulses of right foot checked with Doppler as per MD's orders. Result: Pulse present.
[2019-02-26] MEDS: VANCOMYCIN 1GM/NS 250 ML 250 ML IV SCH ×2 (04:10→15:13)
[2019-02-26 05:21] LABS: BASOPHILS # (AUTO) 0.1 (0.0-0.1); BASOPHILS % 0.5 % (0.0-1.0); EOSINOPHILS # (AUTO) 0.1 (0.0-0.4); HEMATOCRIT 27.6 % (34.2-44.1); HEMOGLOBIN 9.1 g/dL (12.0-16.0); LYMPHOCYTES # (AUTO) 1.8 (1.0-3.2); MEAN CORPUSCULAR HEMOGLOBIN 28.4 pg (28-32); MEAN CORPUSCULAR VOLUME 86.3 fL (81-99); MONOCYTES % 9.1 % (4.4-11.3); NEUTROPHILS % 72.5 % (38.7-80.0); PLATELET COUNT 369 x10e3/uL (140-360); RED CELL DISTRIBUTION WIDTH 14.6 % (11.7-14.4)
[2019-02-26 05:41] LABS: BLOOD UREA NITROGEN < 5 mg/dL (7-26); CALCIUM 9.1 mg/dL (8.4-10.2); CARBON DIOXIDE 24 mmol/L (22-29); CHLORIDE 104 mmol/L (98-107); CREATININE, SERUM 0.71 mg/dL (0.57-1.11); EST GLOMERULAR FILTRATION RATE > 60 ML/MIN (60-); GLUCOSE 99 mg/dL (74-118); MAGNESIUM 1.6 MG/DL (1.3-2.1); SODIUM 140 mmol/L (136-145)
[2019-02-26 05:42] LABS: BUN/CREATININE RATIO 7 (6-25)
[2019-02-26] MEDS: CLINDAMYCIN PHOS 900MG/ 50ML 50 ML IV SCH ×4 (06:00→17:30)
--- NOTE | 2019-02-26 07:15 | NUR ---
Walking rounds done. Patient resting comfortably. Shift report given to oncoming nurse.
[2019-02-26] MEDS: AMLODIPINE BESYLATE 5 MG TAB PO SCH (09:07)
[2019-02-26] MEDS: ASPIRIN 81 MG ENTERIC COATED PO SCH (09:07)
[2019-02-26] MEDS: CLOPIDOGREL BISULFATE 75 MG TAB PO SCH (09:07)
[2019-02-26] MEDS: FAMOTIDINE 20 MG TAB PO SCH ×2 (09:07→15:33)
[2019-02-26] MEDS: DULOXETINE HCL 30 MG DELAYED RELEASE PO SCH ×2 (09:07→15:33)
[2019-02-26] MEDS: GABAPENTIN 100 MG CAP PO SCH ×3 (09:07→21:50)
[2019-02-26] MEDS: IRON-VITAMIN-MINERAL CAPSULE PO SCH ×2 (09:07→15:33)
[2019-02-26] MEDS: METOPROLOL TARTRATE 25 MG TAB PO SCH ×2 (09:08→21:50)
[2019-02-26] MEDS ORDERED: POTASSIUM CHLORIDE 10MEQ EA PO SCH (10:30)
[2019-02-26] MEDS ORDERED: SODIUM CHLORIDE 0.9% 250ML 250 ML ONE (12:26)
--- NOTE | 2019-02-26 12:29 | NUR ---
Received order for LTAC. CM spoke to pt at bedside and explained purpose of LTAC to pt. She is agreeable. States she wants to go wherever her doctors go. Signed choice letter for [facility]. Signed copy placed in chart. Copy to pt. Kaia Mack with [facility] was informed of referral and will come by and vegetable picker clinicals. Discharge disposition once approved: [facility] [address] [facility] [place] [address] .
--- NOTE | 2019-02-26 13:58 | NUR ---
ASSESSMENT: Spiritual concern Pt disappointed from missing protestant anniversary. Pt states her protestant celebrated it's 68th anniversary yesterday and she was unable to attend due to hospitalization. Pt identifies as [employer]. Pt states her family and protestant friends are supportive and have have visited. Intervention: Provided empathic listening and prayer. Provided information on how to reach intermediate manager, if needed. Outcome: Pt appreciative of visit. No need to follow at this time. [facility] [employer] [facility] Department O: [phone] Pager: [phone] ([phone] number calling from)
--- NOTE | 2019-02-26 15:51 | NUR ---
WOUND CARE CONSULT FOR 83 YO FEMALE HX : ISCHEMIA AND PVD RIGHT LOWER LEG CIRCULATION STUDIES DONE SHOWINGH PULSATION YET COMPROMISED RT LE RIGHT LOWER LEG HAS FULL THICKNESS WOUND WITH TENDON EXPOSED MEASURES 21CM X 3.5 CM X .3 CM SURROUNDING SKIN PALE RED TO DUSKY RED WITH POOR SENSATION RECOMMENDATIONS : NURSING TO APPLY DAILY XEROFORM KOKO TO WOUND BASE AND EXPOSED TENDON COVER WITH 4X4S AND KERLIX SECURE WITH TAPE Addendum: 02/26/19 at 1558 by Hitesh Nieto RN Amended: Links added.
--- NOTE | 2019-02-26 18:05 | Progress Note ---
DATE: 02/26/2019 SUBJECTIVE: Ms. Johnson status post fasciotomy, is doing better. The pain is a lot better. REVIEW OF SYSTEMS: HEENT: Negative. PULMONARY: Negative. CARDIAC: Negative. PHYSICAL EXAMINATION: GENERAL: She is alert, oriented, does not seem to be in acute distress. VITAL SIGNS: Stable, currently afebrile. HEENT: Not icteric. NECK: Supple. CHEST: Clear. HEART: S1 and S2. No murmur. ABDOMEN: Soft. IMPRESSION AND PLAN: Compartment syndrome, status post fasciotomy. Continue with local care. Continue with IV antibiotic. At the current time, the patient is going to LTAC. Currently discontinue vancomycin, can discontinue cefepime soon. Continue with local care, PT, OT. The patient is nonweightbearing at the present time. Surgery is following. Discussed with the medical team. MD RADHA Frank/TYLER /[id number]
--- NOTE | 2019-02-26 18:10 | Progress Note ---
DATE: 02/26/2019 Cardiology Progress Note SUBJECTIVE: The patient reports lower extremity pain. OBJECTIVE: VITAL SIGNS: Temperature is 97.4, heart rate is 72, respirations are 14, blood pressure is 163/78, ox saturation 100% on room air. GENERAL: Well appearing, well built, no apparent distress. CARDIOVASCULAR: Regular rate and rhythm. LUNGS: Clear to auscultation. ABDOMEN: Soft, nontender, nondistended. EXTREMITIES: Right lower extremity with dressing in place. LABORATORY DATA: Reviewed. TELEMETRY: Monitoring revealed normal sinus rhythm. IMPRESSION: 1. Acute limb ischemia of the right lower extremity, status post percutaneous intervention. 2. Peripheral artery disease. 3. Hypertension. 4. Hyperlipidemia. 5. Diabetes mellitus. 6. Lower extremity cellulitis and myositis, status post fasciotomy. RECOMMENDATIONS: Continue current cardiovascular medications and vascular checks. Management of the fasciotomy per General Surgery. Antibiotic treatment per primary team. Jose Robins DO BM/MODL /[id number]
--- NOTE | 2019-02-26 18:11 | Diagnostic Imaging Report ---
EXAMINATION: CHEST XRAY LINE PLACEMENT INDICATION: Hypertension. Line placement ^s/p picc line placement COMPARISON: February 22, 2019 FINDINGS: TUBES and LINES: Left peripherally inserted central venous catheter with distal tip at the right atrial/vena cava junction LUNGS: Possible mild scarring/atelectasis at the left lung base. There is no evidence of pneumonia or pulmonary edema. PLEURA: No pleural effusion or pneumothorax. HEART AND MEDIASTINUM: The cardiomediastinal silhouette is unremarkable. BONES AND SOFT TISSUES: No acute osseous lesion. Soft tissues are unremarkable. UPPER ABDOMEN: No free air under the diaphragm. IMPRESSION: Left peripherally inserted central venous catheter with distal tip at the right atrial/vena cava junction Signed by: Dr. Eric Hodges M.D. on 02/26/2019 6:08 PM
--- NOTE | 2019-02-26 18:15 | NUR ---
Picc tip is at the cavoatrial junction per radiology report by Dr Hodges. Picc is OK to use
--- NOTE | 2019-02-26 19:20 | NUR ---
Patient received lying in bed. AAO x 3. No acute distress noted. Safety measures maintained. Dressing to RLE clean, dry and intact. Call light within reach.
[2019-02-26] MEDS: LATANOPROST(OPTH) 2.5 ML BTL OP SCH (21:00)
[2019-02-26] MEDS: TIMOLOL MALEATE(OPTHALMIC) 1 EA BTL OP SCH (21:00)
[2019-02-26] MEDS: ATORVASTATIN 20 MG TAB PO SCH (21:50)
[2019-02-26] MEDS: SENNOSIDES 8.6 MG TAB PO SCH (21:50)
--- NOTE | 2019-02-26 23:00 | NUR ---
Pedal pulse on right foot present with Doppler recording.
[2019-02-27] VITALS (8 sets, daily range): BP systolic 156–170; BP diastolic 75–82
[2019-02-27] MEDS: CEFEPIME 1GM/NS 0.9% 50 ML 50 ML IV SCH ×2 (02:45→14:00)
--- NOTE | 2019-02-27 03:30 | NUR ---
Blood specimen sent to lab for analysis of Vancomycin level.
[2019-02-27] MEDS: VANCOMYCIN 1GM/NS 250 ML 250 ML IV SCH ×2 (04:20→15:35)
[2019-02-27] MEDS: CLINDAMYCIN PHOS 900MG/ 50ML 50 ML IV SCH ×5 (06:29→23:41)
[2019-02-27] MEDS: METOPROLOL TARTRATE 25 MG TAB PO SCH ×2 (06:29→20:57)
[2019-02-27] MEDS: AMLODIPINE BESYLATE 5 MG TAB PO SCH ×2 (06:30→09:00)
--- NOTE | 2019-02-27 07:05 | NUR ---
Patient resting comfortably. Shift report given to oncoming nurse.
[2019-02-27] MEDS: GABAPENTIN 100 MG CAP PO SCH ×3 (09:10→20:57)
[2019-02-27] MEDS: ASPIRIN 81 MG ENTERIC COATED PO SCH (09:10)
[2019-02-27] MEDS: IRON-VITAMIN-MINERAL CAPSULE PO SCH ×2 (09:10→15:35)
[2019-02-27] MEDS: DULOXETINE HCL 30 MG DELAYED RELEASE PO SCH ×2 (09:10→15:35)
[2019-02-27] MEDS: FAMOTIDINE 20 MG TAB PO SCH ×2 (09:10→15:35)
[2019-02-27] MEDS: CLOPIDOGREL BISULFATE 75 MG TAB PO SCH (09:11)
[2019-02-27] MEDS: HYDROCODONE/APAP 5MG-325MG TAB PO PRN ×2 (09:23→17:17)
[2019-02-27] MEDS: MORPHINE SULFATE INJ 4 MG/ML INJ 1ML IV PRN ×2 (11:50→18:20)
--- NOTE | 2019-02-27 16:09 | NUR ---
Nutrition Screen Note RD Recommendation for Physician: - Continue current diet, consider NCS diet restriction per BG trend Plan of Care: RD following, monitoring for tolerance and adequacy Nutrition reason for involvement: Follow up Primary Diagnose(s): HTN, ischemia of R lower leg PMH: PVD, HTN, dyslipidemia, reflux, OA Ht: 66 in Wt: 173 lb BMI: 27.9 kg/m2 IBW: [address] Assessment: 02/27: Follow up. Pt s/p fasciotomy by surgery, wound care following. Po intake fluctuates, family brings in food- noted foods at pt bedside at times of visit. No GI distress. Labs and meds reviewed, K 3 and POC Gluc 171. Plan for D/C to LTAC per case management. Will monitor and continue to follow. (02/21) 83 YOF admitted for R lower leg ischemia with hx of PVD. Pt discussed during am rounds, no surgical intervention at this time. Pt seen today for LOS. Pt states "I've never been a big eater", noted 50-100% meal intake and reports decreased appetite with recent increase in pain level. Pt reports UBW of 163#, no wt loss noted. Pt denies any GI distress. Pt with no questions or concerns at time of visit. Chart reviewed. Labs and meds reviewed. Will monitor and continue to follow. Current Diet: Regular Malnutrition Evaluation (02/21/19) The patient does not meet criteria for a specified degree of malnutrition at this time. Will re-evaluate at follow-up as appropriate. Diet Education Needs Assessment: Diet education not indicated. Diet tolerance: tolerating po Nutrition Care Level: Low Signed: Lauren Perdomo RD, LD, [facility]
--- NOTE | 2019-02-27 16:19 | NUR ---
WOUND CARE TREATMENT: WOUND VAC APPLIED TO THE RIGHT LOWER LEG WOUND; WOUND MEASUREMENTS ARE 18.4X3.5X0.9CM, 10% PINK GRANULATION AND 90% SLOUGH/ESCHAR TO WOUND BED; EXPOSED TENDON IN AREAS OF WOUND BED. WOUND VAC APPLIED PER ORDERS, 120mmHg CONT SUCTION; CHANGE NPWT EVERY TUES, THURS, SAT AND PRN. WOUND VAC IS INTACT; SEAL OBTAINED; PATIENT TOLERATED PROCEDURE WELL. REPORT GIVEN TO PRIMARY NURSE, ANKITA FRANCO. WOUND CARE TEAM TO FOLLOW UP WITH PATIENT VAC CHANGES AND WOUND ASSESSMENT. Addendum: 02/27/19 at 1624 by Trisha Preston RN Amended: Links added.
[2019-02-27] MEDS ORDERED: POTASSIUM CHLORIDE 20 MEQ TAB CR PO NR (17:00)
[2019-02-27] MEDS ORDERED: AMLODIPINE BESYLATE 5 MG TAB PO NR (17:00)
--- NOTE | 2019-02-27 19:10 | NUR ---
Report given to oncoming nurse of patient's status. Resting in bed. NO s/s of acute distress noted. Wound vac to RLE.Side rails upx2, call light within reach.
--- NOTE | 2019-02-27 19:15 | NUR ---
patient received awake, alert, lying quietly in bed. no c/o pain noted at this time. wound vac to right lower extremity c,d,i. pm assessment complete. call bergeron placed within reach. patient instructed to call for assistance when needed.
[2019-02-27] MEDS: TIMOLOL MALEATE(OPTHALMIC) 1 EA BTL OP SCH (20:56)
[2019-02-27] MEDS: SENNOSIDES 8.6 MG TAB PO SCH (20:57)
[2019-02-27] MEDS: ATORVASTATIN 20 MG TAB PO SCH (20:57)
[2019-02-27] MEDS: LATANOPROST(OPTH) 2.5 ML BTL OP SCH (20:57)
[2019-02-28] VITALS (8 sets, daily range): BP systolic 144–173; BP diastolic 69–79
--- NOTE | 2019-02-28 | NUR ---
patient oob to bsc with assistance without difficulty.
[2019-02-28] MEDS: CEFEPIME 1GM/NS 0.9% 50 ML 50 ML IV SCH ×2 (02:00→13:51)
[2019-02-28] MEDS: VANCOMYCIN 1GM/NS 250 ML 250 ML IV SCH ×2 (03:25→16:00)
[2019-02-28] MEDS: MORPHINE SULFATE INJ 4 MG/ML INJ 1ML IV PRN (03:40)
--- NOTE | 2019-02-28 03:40 | NUR ---
patient medicated with morphine 3mg ivp for c/o right lower extremity pain 7/10 at this time per patients request.
--- NOTE | 2019-02-28 05:22 | NUR ---
am labs drawn from left picc line at this time without difficulty.
[2019-02-28] MEDS: CLINDAMYCIN PHOS 900MG/ 50ML 50 ML IV SCH ×4 (05:30→23:20)
[2019-02-28 05:54] LABS: ANION GAP 10.2 mmol/L (8-16); BLOOD UREA NITROGEN < 5 mg/dL (7-26); CALCIUM 7.8 mg/dL (8.4-10.2); CARBON DIOXIDE 23 mmol/L (22-29); CHLORIDE 109 mmol/L (98-107); CREATININE, SERUM 0.63 mg/dL (0.57-1.11); EST GLOMERULAR FILTRATION RATE > 60 ML/MIN (60-); GLUCOSE 103 mg/dL (74-118); POTASSIUM 3.2 mmol/L (3.5-5.1); SODIUM 139 mmol/L (136-145)
[2019-02-28 05:56] LABS: BUN/CREATININE RATIO 8 (6-25)
[2019-02-28] MEDS: HYDROCODONE/APAP 5MG-325MG TAB PO PRN ×3 (06:37→22:20)
--- NOTE | 2019-02-28 06:37 | NUR ---
patient medicated with norco 5/325mg po for c/o right lower extremity 10/16 at this time per patients request.
[2019-02-28 06:42] LABS: MAGNESIUM 1.3 MG/DL (1.3-2.1)
--- NOTE | 2019-02-28 07:10 | NUR ---
RCD PT AT BED PT IS ALERT AND ORIENTED PT RESTING ON BED WOUND VAC ON RT LEG WORKING WELL IV PATENT BED LOW AND LOCKED CALL LIGHT IN REACH
[2019-02-28] MEDS: FAMOTIDINE 20 MG TAB PO SCH ×2 (07:30→16:30)
[2019-02-28] MEDS: IRON-VITAMIN-MINERAL CAPSULE PO SCH ×2 (09:00→17:00)
[2019-02-28] MEDS: CLOPIDOGREL BISULFATE 75 MG TAB PO SCH (09:00)
[2019-02-28] MEDS: METOPROLOL TARTRATE 25 MG TAB PO SCH ×2 (09:00→20:21)
[2019-02-28] MEDS: DULOXETINE HCL 30 MG DELAYED RELEASE PO SCH ×2 (09:00→17:00)
[2019-02-28] MEDS: AMLODIPINE BESYLATE 5 MG TAB PO SCH (09:00)
[2019-02-28] MEDS: ASPIRIN 81 MG ENTERIC COATED PO SCH (09:00)
[2019-02-28] MEDS: GABAPENTIN 100 MG CAP PO SCH ×3 (09:00→20:21)
--- NOTE | 2019-02-28 11:05 | NUR ---
Spoke to Kaia Merritt. Still pending insurance authorization.
--- NOTE | 2019-02-28 13:23 | NUR ---
PAGED AND NOTIFIED THE POTASSIUM LEVEL TO DR MORALES GOT NEW ORDERS
[2019-02-28] MEDS ORDERED: POTASSIUM CHLORIDE 20 MEQ TAB CR PO ONE (13:24)
--- NOTE | 2019-02-28 19:00 | NUR ---
patient received awake, alert, lying quietly in bed. no c/o pain noted. pm assessment complete. patient instructed to call for assistance when needed.
--- NOTE | 2019-02-28 19:04 | NUR ---
PT RESTING ON BED BED SIDE REPORT GIVEN TO ONCOMING NURSE
[2019-02-28] MEDS: TIMOLOL MALEATE(OPTHALMIC) 1 EA BTL OP SCH (20:20)
[2019-02-28] MEDS: LATANOPROST(OPTH) 2.5 ML BTL OP SCH (20:20)
[2019-02-28] MEDS: SENNOSIDES 8.6 MG TAB PO SCH (20:21)
[2019-02-28] MEDS: ATORVASTATIN 20 MG TAB PO SCH (20:21)
--- NOTE | 2019-02-28 22:20 | NUR ---
patient medicated with norco 5/325mg po for right leg pain 5/10 at this time per patients request.
[2019-03-01] VITALS (8 sets, daily range): BP systolic 127–180; BP diastolic 74–84
--- NOTE | 2019-03-01 | NUR ---
patient oob to bsc with assistance. patient voids without difficulty.
[2019-03-01] MEDS: CEFEPIME 1GM/NS 0.9% 50 ML 50 ML IV SCH ×2 (01:36→14:00)
[2019-03-01] MEDS: VANCOMYCIN 1GM/NS 250 ML 250 ML IV SCH ×2 (03:15→16:00)
[2019-03-01] MEDS: CLINDAMYCIN PHOS 900MG/ 50ML 50 ML IV SCH ×3 (05:23→17:10)
[2019-03-01] MEDS: FAMOTIDINE 20 MG TAB PO SCH ×2 (07:30→16:30)
[2019-03-01] MEDS: ASPIRIN 81 MG ENTERIC COATED PO SCH (09:00)
[2019-03-01] MEDS: METOPROLOL TARTRATE 25 MG TAB PO SCH ×2 (09:00→20:33)
[2019-03-01] MEDS: GABAPENTIN 100 MG CAP PO SCH ×3 (09:00→20:33)
[2019-03-01] MEDS: DULOXETINE HCL 30 MG DELAYED RELEASE PO SCH ×2 (09:00→16:51)
[2019-03-01] MEDS: CLOPIDOGREL BISULFATE 75 MG TAB PO SCH (09:00)
[2019-03-01] MEDS: AMLODIPINE BESYLATE 5 MG TAB PO SCH (09:00)
[2019-03-01] MEDS: IRON-VITAMIN-MINERAL CAPSULE PO SCH ×2 (09:00→16:51)
[2019-03-01] MEDS: HYDROCODONE/APAP 5MG-325MG TAB PO PRN (12:08)
[2019-03-01 13:30] LABS: ALANINE AMINOTRANSFERASE 36 IU/L (0-55); ALBUMIN 2.5 g/dL (3.5-5.0); ALBUMIN/GLOBULIN RATIO 0.6 (0.8-2.0); ALKALINE PHOSPHATASE 65 IU/L (40-150); ANION GAP 15.2 mmol/L (8-16); BLOOD UREA NITROGEN < 5 mg/dL (7-26); CALCIUM 9.5 mg/dL (8.4-10.2); CARBON DIOXIDE 25 mmol/L (22-29); CHLORIDE 106 mmol/L (98-107); EST GLOMERULAR FILTRATION RATE > 60 ML/MIN (60-); GLUCOSE 108 mg/dL (74-118); POTASSIUM 4.2 mmol/L (3.5-5.1); SODIUM 142 mmol/L (136-145)
[2019-03-01 13:31] LABS: BUN/CREATININE RATIO 10 (6-25)
--- NOTE | 2019-03-01 14:00 | NUR ---
PT C/O CRUMBING ON THE LEGS NOTIFIED DR MORALES GOT NEW ORDERS
[2019-03-01] MEDS ORDERED: MAGNESIUM SULFATE 2GM/50ML 50 ML IV ONE (14:30)
--- NOTE | 2019-03-01 15:53 | NUR ---
DISCUSSED IN BARRIER ROUNDS PT STILL PENDING DAMIR ON 3 ABX
--- NOTE | 2019-03-01 15:58 | Progress Note ---
DATE: 03/01/2019 Cardiology Progress Note SUBJECTIVE: The patient reports right lower extremity pain. OBJECTIVE: VITAL SIGNS: Temperature is 98.8, heart rate is 93, respirations are 19, blood pressure is 127/74, and oxygen saturation 99% on room air. GENERAL: Well appearing, in no apparent distress. CARDIOVASCULAR: Regular rate and rhythm. LUNGS: Clear to auscultation. ABDOMEN: Soft, nontender, nondistended. EXTREMITIES: Right lower extremity with a wound VAC. Wound is dressed and wrapped. CARDIOVASCULAR MEDICATIONS: Reviewed. LABORATORY DATA: Reviewed. Hemoglobin 9.1. Creatinine is 0.5. TELEMETRY: Monitoring revealed normal sinus rhythm. IMPRESSION: 1. Acute limb ischemia of the right lower extremity, status post percutaneous intervention. 2. Peripheral artery disease. 3. Hypertension. 4. Hyperlipidemia. 5. Diabetes mellitus. 6. Lower extremity cellulitis and myositis status post fasciotomy. RECOMMENDATIONS: Continue current cardiovascular medications and vascular checks. Management of her wound VAC and fasciotomy per General Surgery. Antibiotics per primary team. We will continue to follow. DO TEE Rolle/MODL /[id number]
--- NOTE | 2019-03-01 18:40 | NUR ---
PT RESTING ON BED BED SIDE REPORT GIVEN TO ONCOMING NURSE
--- NOTE | 2019-03-01 19:30 | NUR ---
ROUNDS DONE WITH AM NURSE, PATIENT CONTINUE RESTING IN BED, CALL LIGHT REMAIN IN REACH. WILL CONTINUE TO MONITOR.
[2019-03-01] MEDS: TIMOLOL MALEATE(OPTHALMIC) 1 EA BTL OP SCH (20:33)
[2019-03-01] MEDS: LATANOPROST(OPTH) 2.5 ML BTL OP SCH (20:33)
[2019-03-01] MEDS: ATORVASTATIN 20 MG TAB PO SCH (20:33)
[2019-03-01] MEDS: SENNOSIDES 8.6 MG TAB PO SCH (20:33)
[2019-03-01] MEDS: MORPHINE SULFATE INJ 4 MG/ML INJ 1ML IV PRN (20:34)
[2019-03-02] VITALS (7 sets, daily range): BP systolic 154–165; BP diastolic 75–88
[2019-03-02] MEDS: CLINDAMYCIN PHOS 900MG/ 50ML 50 ML IV SCH ×4 (00:19→18:18)
[2019-03-02] MEDS: CEFEPIME 1GM/NS 0.9% 50 ML 50 ML IV SCH ×2 (02:10→15:46)
[2019-03-02] MEDS: VANCOMYCIN 1GM/NS 250 ML 250 ML IV SCH ×2 (04:07→17:06)
[2019-03-02 06:01] LABS: BASOPHILS # (AUTO) 0.1 (0.0-0.1); BASOPHILS % 0.8 % (0.0-1.0); EOSINOPHILS # (AUTO) 0.1 (0.0-0.4); EOSINOPHILS % 1.5 % (0.0-6.0); HEMATOCRIT 26.9 % (34.2-44.1); HEMOGLOBIN 8.7 g/dL (12.0-16.0); LYMPHOCYTES # (AUTO) 1.9 (1.0-3.2); LYMPHOCYTES % 20.4 % (18.0-39.1); MEAN CORPUSCULAR HEMOGLOBIN 27.9 pg (28-32); MEAN CORPUSCULAR HGB CONC 32.3 g/dL (31-35); MEAN CORPUSCULAR VOLUME 86.2 fL (81-99); NEUTROPHILS % 65.8 % (38.7-80.0); PLATELET COUNT 386 x10e3/uL (140-360); RED BLOOD COUNT 3.12 x10e6/uL (3.6-5.1); RED CELL DISTRIBUTION WIDTH 14.6 % (11.7-14.4)
[2019-03-02 06:16] LABS: ANION GAP 13.5 mmol/L (8-16); BLOOD UREA NITROGEN < 5 mg/dL (7-26); CALCIUM 8.4 mg/dL (8.4-10.2); CARBON DIOXIDE 25 mmol/L (22-29); CHLORIDE 106 mmol/L (98-107); CREATININE, SERUM 0.62 mg/dL (0.57-1.11); EST GLOMERULAR FILTRATION RATE > 60 ML/MIN (60-); GLUCOSE 101 mg/dL (74-118); POTASSIUM 3.5 mmol/L (3.5-5.1); SODIUM 141 mmol/L (136-145)
[2019-03-02 06:21] LABS: BUN/CREATININE RATIO 8 (6-25)
--- NOTE | 2019-03-02 07:24 | NUR ---
ROUNDS DONE WITH AM NURSE. NO DISTRESS NOTED. CALL LIGHT REMAIN IN REACH. WOUND VAC REMAIN INTACT.
[2019-03-02] MEDS: DULOXETINE HCL 30 MG DELAYED RELEASE PO SCH ×2 (10:11→17:06)
[2019-03-02] MEDS: IRON-VITAMIN-MINERAL CAPSULE PO SCH ×2 (10:11→17:06)
[2019-03-02] MEDS: ASPIRIN 81 MG ENTERIC COATED PO SCH (10:11)
[2019-03-02] MEDS: FAMOTIDINE 20 MG TAB PO SCH ×2 (10:11→15:46)
[2019-03-02] MEDS: AMLODIPINE BESYLATE 5 MG TAB PO SCH (10:12)
[2019-03-02] MEDS: CLOPIDOGREL BISULFATE 75 MG TAB PO SCH (10:12)
[2019-03-02] MEDS: GABAPENTIN 100 MG CAP PO SCH ×3 (10:12→21:48)
[2019-03-02] MEDS: METOPROLOL TARTRATE 25 MG TAB PO SCH ×2 (10:12→21:48)
--- NOTE | 2019-03-02 12:50 | NUR ---
WOUND VAC DRESSING REMOVED. 10% GRANULAR TISSUE. 90% THICK LEATHERY ESCHAR PRESENT. PERIWOUND IS EXTREMELY MACERATED, WITH SKIN PEELING OFF. WOUND VAC HELD TODAY. MESALT APPLIED INSTEAD. PT WILL BENEFIT FROM SURGICAL DEBRIDEMENT. CALLED DR. COLINDRES NO NOTIFY AWAITING FOR HIM TO RETURN PHONE CALL. BANDAR, PRIMARY NURSE RN, AWARE OF SITUATION. WILL REASSESS PT FOR VAC PLACEMENT ON TUESDAY.
[2019-03-02] MEDS ORDERED: SODIUM CHLORIDE 0.9% 250ML 250 ML ONE (13:26)
--- NOTE | 2019-03-02 16:07 | NUR ---
SPOKE WITH KEMI ABOUT [facility] LET KNOW WILL BE IN BUILDING TOMORROW TO PLEASE CONTACT IF GET APPROVAL.
[2019-03-02] MEDS: MORPHINE SULFATE INJ 4 MG/ML INJ 1ML IV PRN (16:40)
--- NOTE | 2019-03-02 16:42 | NUR ---
LONG-TERM ACUTE CARE DISCHARGE INFORMATION PATIENT HAS BEEN ACCEPTED TO: [facility] NAME: [facility] [id number] [facility] ACCEPTING RAG WASHER: JULIA SAAVEDRA ACCEPTING MD: ANDREW ROOM: 307 NURSE CALL REPORT TO: [phone] THE FOLLOWING DOCUMENTS MUST ACCOMPANY PATIENT FOR TRANSFER: COPIED CHART: CLINICALS MOT INFO RECEIVED FROM:[facility] ORDER/RECONCILED MED LIST: NURSE TO DO [id number] DNR: NO PT IS FULL CODE
[2019-03-02] MEDS ORDERED: POTASSIUM CHLORIDE 20 MEQ TAB CR PO ONE (17:00)
[2019-03-02] MEDS ORDERED: COLLAGENASE OINTMENT 30 GM TUBE TP SCH (17:00)
--- NOTE | 2019-03-02 17:06 | NUR ---
LET HOUSE SUP AND LAST MODEL MAKER KNOW ROOM GIVEN AND ABLE TO TRANSFER TO FOLLOW UP.
[2019-03-02] MEDS ORDERED: LISINOPRIL 10 MG TAB PO SCH (17:30)
--- NOTE | 2019-03-02 19:20 | NUR ---
Patient received sitting up in bed. AAO x 4. Patient had no complaints of pain. Respirations even and non-labored. Dressing to RLE clean, dry and intact. Patient informed of transfer to [facility]. Fall precautions implemented. Patient instructed to call for assistance when needed. Call light within reach.
--- NOTE | 2019-03-02 19:45 | NUR ---
Report called to Leeanna at [facility] . Patient going to Room 307. Awaiting EMS.
[2019-03-02] MEDS ORDERED: LATANOPROST(OPTH) 2.5 ML BTL OP SCH (21:00)
[2019-03-02] MEDS: TIMOLOL MALEATE(OPTHALMIC) 1 EA BTL OP SCH (21:00)
[2019-03-02] MEDS: ATORVASTATIN 20 MG TAB PO SCH (21:48)
[2019-03-02] MEDS: SENNOSIDES 8.6 MG TAB PO SCH (21:48)
--- NOTE | 2019-03-02 21:55 | NUR ---
Patient transported to [facility] via stretcher by EMS. Patient in stable condition. Vital signs WNL.
--- NOTE | 2019-03-05 13:30 | Progress Note ---
DATE: 03/02/2019 Cardiology Progress Note SUBJECTIVE: The patient denies chest pain or shortness of breath. OBJECTIVE: VITAL SIGNS: Temperature 98.7 degrees, pulse 86, respiratory rate 18, blood pressure 165/85, oxygen saturation 100% on room air. GENERAL: Awake, alert, in no acute distress. LUNGS: Clear to auscultation bilaterally. No wheezes or crackles. CARDIOVASCULAR: Normal rate, regular rhythm. No murmur. Normal S1, S2. ABDOMEN: Soft and nontender. EXTREMITIES: Right lower extremity with wound VAC and dressing in place. CARDIAC MEDICATIONS: Atorvastatin 20 mg p.o. at bedtime, metoprolol tartrate 25 mg p.o. q.12 hours, lisinopril 10 mg p.o. daily, amlodipine 10 mg p.o. daily, Plavix 75 mg p.o. daily, and aspirin 81 mg p.o. daily. LABORATORY DATA: WBC 9.15, hemoglobin 8.7, hematocrit 26.9, platelets 386. Sodium 141, potassium 3.5, chloride 106, CO2 of 25, BUN less than 5, and creatinine 0.62. TELEMETRY: Normal sinus rhythm. IMPRESSION: 1. Acute limb ischemia of the right lower extremity, status post PCI. 2. Peripheral arterial disease. 3. Hypertension. 4. Hyperlipidemia. 5. Diabetes mellitus. 6. Lower extremity cellulitis and myositis, status post fasciotomy. RECOMMENDATIONS: Continue current cardiac medications. Continue vascular checks. Management of wound VAC and fasciotomy per General Surgery. Antibiotics per primary service. Thank you for this consult. We will continue to follow. Nisreen Gardner MD ABS/MODL /[id number]
--- NOTE | 2019-04-02 16:47 | Operative Report ---
DATE OF PROCEDURE: 02/15/2019 SURGEON: Abner Perales MD CARDIAC CATHETERIZATION REPORT INDICATION FOR PROCEDURE: Acute limb ischemia, right lower extremity. PREPROCEDURE ASSESSMENT: Risks, benefits, and alternatives of treatment explained to the patient prior to the procedure. The patient was deemed to be an appropriate candidate for moderate sedation. Informed consent was obtained and documented in the medical record. PROCEDURES PERFORMED: 1. Abdominal aortography. 2. Bilateral peripheral angiography. 3. Third-order catheter placement. 4. Primary thrombectomy of right common femoral artery. 5. CTA of the right DRIVING TEACHER, SFA, and deep femoral arteries. 6. Vascular closure device. 7. Moderate sedation 90 minutes. PROCEDURE IN DETAIL: The patient was brought to the cardiac catheterization laboratory in a fasting state. The left groin was prepped and draped in a sterile fashion. A 5-Slovenian sheath was inserted in the left common femoral artery using modified Seldinger technique. Abdominal aortography was performed using Omni Flush catheter. Glentana Advantage wire was used through the Omni Flush catheter to access the contralateral iliac system. Omni Flush catheter was advanced into the contralateral common femoral artery and multiple pictures were taken. 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 We decided to proceed with intervention. The 5-Slovenian sheath was exchanged for a destination sheath using the same Glentana Advantage wire. The lesion was crossed using the run-through wire, and we also placed another run-through wire in the deep femoral artery to protect the ostium. We proceeded to perform Angiojet thrombectomy of the right common femoral artery and SFA followed by angioplasty using 6.0 x 40 mm balloon. This resulted in a non-flow limiting dissection. There was also concern about ostium of the deep femoral artery and superficial femoral artery, so we performed kissing balloon inflation using two 4.0 x 20 mm balloons. This resulted in excellent flow through the common femoral, deep femoral, and superficial femoral systems with a 3-vessel runoff. Flow-limiting dissection was noted, however, significant improvement from before after doing angioplasty. The patient tolerated the procedure well. ACT was kept near 300 throughout the procedure using IV boluses of heparin. Aspirin and Plavix loading doses were given postprocedure. There were no immediate complications. The access sheath was left in and will be removed later in the ICU using manual compression. 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 Successful balloon angioplasty and thrombectomy of the right common femoral and SFA with mosque of flow. ESTIMATED BLOOD LOSS: 100 mL. GRAFTS AND IMPLANTS: None. SPECIMEN REMOVED: None. COMPLICATIONS: None. FINAL RECOMMENDATIONS: 1. Continue aspirin and Plavix. 2. Removal of left common femoral sheath after 6 hours of observation in the ICU to ensure that there is no issues with non-flow or flow limiting dissection in the right common femoral artery. 3. Continue optimal medical therapy and risk factor control. MD NASIR Cheney/TYLRE /[id number]
== END 2019-03-02 21:55 | DRG 271 ==
LOC: ER 14:54 → ERHOLD 15:57 → MED/SURG2 19:18 → ICU 19:27 → MED/SURG2 02-20 00:57
PROVIDERS: ADMIT Internal Medicine; ATTEND Internal Medicine
PROC: 0J8N0ZZ Division of Right Lower Leg Subcutaneous Tissue and Fascia, Open Approach (ICD-10-PCS; principal; 2019-02-15)
PROC: 04CK3ZZ Extirpation of Matter from Right Femoral Artery, Percutaneous Approach (ICD-10-PCS; 2019-02-15)
PROC: 047K3ZZ Dilation of Right Femoral Artery, Percutaneous Approach (ICD-10-PCS; 2019-02-15)
PROC: B41D1ZZ Fluoroscopy of Aorta and Bilateral Lower Extremity Arteries using Low Osmolar Contrast (ICD-10-PCS; 2019-02-15)
PROC: 30243N1 Transfusion of Nonautologous Red Blood Cells into Central Vein, Percutaneous Approach (ICD-10-PCS; 2019-02-16)
PROC: 02HV33Z Insertion of Infusion Device into Superior Vena Cava, Percutaneous Approach (ICD-10-PCS; 2019-02-26)
DX: I70.211 Atherosclerosis of native arteries of extremities with intermittent claudication, right leg (principal); M60.061 Infective myositis, right lower leg; N17.9 Acute kidney failure, unspecified; E87.1 Hypo-osmolality and hyponatremia; D62 Acute posthemorrhagic anemia; L76.32 Postprocedural hematoma of skin and subcutaneous tissue following other procedure; T79.6XXA Traumatic ischemia of muscle, initial encounter; I99.8 Other disorder of circulatory system; I10 Essential (primary) hypertension; E87.6 Hypokalemia; E78.5 Hyperlipidemia, unspecified; M19.90 Unspecified osteoarthritis, unspecified site; K21.9 Gastro-esophageal reflux disease without esophagitis; D63.8 Anemia in other chronic diseases classified elsewhere; M21.371 Foot drop, right foot
CPT/HCPCS: 36247; 36415; 36569; 37224; 71045; 71250; 74177; 75625; 75710; 80048; 80053; 80061; 80202; 81001; 82550; 82552; 82553; 82948; 83735; 83880; 84100; 84132; 84443; 84484; 85014; 85018; 85025; 85610; 85730; 86850; 86900; 86920; 87040; 87086; 93005; 93926; 93971; 97139; 99284; C1725; C1757; C1766; C1769; C1887; J0692; J1644; J1940; J2001; J2250; J2270; J2405; J2720; J3010; J3370; J3475; J3480; J7030; J7050; P9016; Q0162; Q9967